=== PATIENT | female | born 1930 | race Caucasian/White ===

== ENCOUNTER 2017-05-30 19:31 | Inpatient (IN) | payer MEDICARE, OTHER ==
[~2017-05-30] VITALS: Ht 160 cm; Wt 71.2 kg
[2017-05-30] MEDS ORDERED: SOD CHLORIDE 0.9% 500 ML IV STA (19:54)
[2017-05-30] MEDS ORDERED: ONDANSETRON 4 MG INJ IV STA (19:54)
[2017-05-30] MEDS ORDERED: morphine 4 MG/ML VIAL IV STA (19:54)
--- NOTE | 2017-05-30 19:58 | ERA ---
ER Documentation Chief Complaint Date/Time DATE: 05/30/17 TIME: 19:57 Chief Complaint bib ra from home for n/v since morning, and hypertensionk, bs on field 179 HPI 86-year-old female, history of diabetes mellitus type 2, hypertension, dyslipidemia and coronary artery disease status post PCI, presents to the ED via rescue ambulance complaining of nausea with multiple episodes of nonbloody, nonbilious emesis since this morning. Over the last several hours developed moderate, generalized, crampy, nonradiating abdominal pain is localized to the epigastrium. Denies hematemesis, hematochezia or melanotic stools. No chest pain, palpitations or shortness of breath. No leg pain or swelling. Denies dysuria, polyuria, hematuria or flank pain. No ill contacts, recent travel or contaminated food exposure. No relieving or exacerbating factors. No fevers or chills. ROS All systems reviewed and are negative except as per history of present illness. Medications Home Meds Reported Medications Liraglutide (Victoza 3-Delgado) Unknown Strength Pen.injctr, 0 SQ DAILY, SYR 05/30/17 Aspirin* (Aspirin* EC) 81 Mg Tablet.dr, 81 MG PO DAILY, TAB 05/30/17 Metformin Hcl* (Metformin Hcl*) 1,000 Mg Tablet, 1000 MG PO WITH BREAKFAST DINNE , #60 TAB 05/30/17 Clopidogrel Bisulfate* (Clopidogrel Bisulfate*) 75 Mg Tablet, 75 MG PO DAILY, # 30 TAB 05/30/17 Tramadol Hcl* (Ultram*) 50 Mg Tablet, 50 MG PO Q6H Y for PAIN, TAB 05/30/17 Sumatriptan Succinate* (Sumatriptan Succinate*) 50 Mg Tablet, 50 MG PO NEEDED Y for PRN, TAB May repeat after 2 hours if needed; MAX 200 mg/24 hours 05/30/17 Carvedilol* (Carvedilol*) 12.5 Mg Tablet, 12.5 MG PO BID, #60 TAB 05/30/17 Amlodipine Besylate* (Amlodipine Besylate*) 10 Mg Tablet, 10 MG PO DAILY, #30 TAB 05/30/17 Ibuprofen* (Ibuprofen*) 600 Mg Tablet, 600 MG PO BID Y for PRN, TAB 05/30/17 Glipizide* (Glipizide*) 10 Mg Tablet, 10 MG PO AC BREAKFAST DINNER, TAB 05/30/17 Allergies Allergies: Coded Allergies: No Known Allergy (Unverified , 05/30/17) PMhx/Soc Reviewed in chart. As per HPI. Lives with family. History of Surgery: Yes (Appendectomy, PCI.) Anesthesia Reaction: No Hx Neurological Disorder: No Hx Respiratory Disorders: No Hx Cardiac Disorders: Yes (Hypertension, coronary artery disease) Hx Psychiatric Problems: No Hx Miscellaneous Medical Probl: Yes (Diabetes, dyslipidemia) Hx Alcohol Use: Yes (Social) Hx Substance Use: No Hx Tobacco Use: No FmHx Hypertension. Mother: of cancer. Physical Exam Vitals Time: 19:40. T:98.8 P:108 R:18 BP:232/114 Pox:99% Physical Exam Const: Alert, elderly, anxious, moderate to severe distress due to pain. Head: Atraumatic Eyes: Normal Conjunctiva. Extraocular movements are intact. Anicteric. ENT: Normal External Ears, Nose and Mouth. Pharynx is clear. Mucous membranes are moist. Neck: Full range of motion. Nontender. No JVD. Resp: Breath sounds are equal and clear to auscultation bilaterally Cardio: Regular rate and rhythm, no murmurs or gallops. Abd: Soft, obese. Normal bowel sounds. Not distended.. No calf swelling or tenderness. Moderate diffuse tenderness localized to the epigastrium. No rebound or guarding. No masses or abnormal pulsations. Skin: No petechiae or rashes Back: No midline or flank tenderness Ext: No cyanosis, or edema. Pulses 4+ in all extremities. Neur: Awake and alert. No focal deficit observed. Psych: Appears anxious but not depressed. Result Diagram: 06/07/1759 06/07/1759 Results 24 hrs Laboratory Tests Test 05/30/17 19:59 05/30/17 20:30 05/30/17 21:03 05/30/17 23:00 Bedside Glucose 227mg/dL White Blood Count 12.210^3/ul Red Blood Count 4.3710^6/ul Hemoglobin 12.4g/dl Hematocrit 37.7% Mean Corpuscular Volume 86.3fl Mean Corpuscular Hemoglobin 28.4pg Mean Corpuscular Hemoglobin Concent 32.9g/dl Red Cell Distribution Width 13.3% Platelet Count 93249^3/UL Mean Platelet Volume 9.5fl Neutrophils % 87.3% Lymphocytes % 10.1% Monocytes % 2.0% Eosinophils % 0.0% Basophils % 0.2% Nucleated Red Blood Cells % 0.0/100WBC Neutrophils # 10.710^3/ul Lymphocytes # 1.210^3/ul Monocytes # 0.310^3/ul Eosinophils # 0.010^3/ul Basophils # 0.010^3/ul Nucleated Red Blood Cells # 0.010^3/ul Sodium Level 141mmol/L Potassium Level 4.0mmol/L Chloride Level 104mmol/L Carbon Dioxide Level 19mmol/L Anion Gap 22 Blood Urea Nitrogen 20mg/dl Creatinine 0.98mg/dl Glucose Level 265mg/dl Calcium Level 9.6mg/dl Total Bilirubin 0.4mg/dl Direct Bilirubin 0.00mg/dl Indirect Bilirubin 0.4mg/dl Aspartate Amino Transf (AST/SGOT) 26IU/L Alanine Aminotransferase (ALT/SGPT) 36IU/L Alkaline Phosphatase 100IU/L Troponin I 0.642ng/ml 1.200ng/ml Total Protein 8.6g/dl Albumin 4.7g/dl Globulin 3.90g/dl Albumin/Globulin Ratio 1.20 Lipase 323U/L Urine Color STRAW Urine Clarity CLEAR Urine pH 8.0 Urine Specific Gould 1.007 Urine Ketones 1+mg/dL Urine Nitrite NEGATIVEmg/dL Urine Bilirubin NEGATIVEmg/dL Urine Urobilinogen NEGATIVEmg/dL Urine Leukocyte Esterase NEGATIVELeu/ul Urine Microscopic RBC 3/HPF Urine Microscopic WBC 4/HPF Urine Hemoglobin NEGATIVEmg/dL Urine Glucose 3+mg/dL Urine Total Protein 2+mg/dl Test 05/30/17 23:10 05/31/17 01:40 05/31/17 01:50 05/31/17 03:10 Lactic Acid Level 3.9mmol/L 2.6mmol/L White Blood Count 16.810^3/ul Red Blood Count 4.3210^6/ul Hemoglobin 12.2g/dl Hematocrit 37.4% Mean Corpuscular Volume 86.6fl Mean Corpuscular Hemoglobin 28.2pg Mean Corpuscular Hemoglobin Concent 32.6g/dl Red Cell Distribution Width 13.5% Platelet Count 21604^3/UL Mean Platelet Volume 9.6fl Neutrophils % 92.5% Lymphocytes % 4.7% Monocytes % 2.3% Eosinophils % 0.0% Basophils % 0.1% Nucleated Red Blood Cells % 0.0/100WBC Neutrophils # 15.510^3/ul Lymphocytes # 0.810^3/ul Monocytes # 0.410^3/ul Eosinophils # 0.010^3/ul Basophils # 0.010^3/ul Nucleated Red Blood Cells # 0.010^3/ul Prothrombin Time 13.3Sec Prothrombin Time Ratio 1.0 INR International Normalized Ratio 1.01 Activated Partial Thromboplast Time > 180.0Sec Current Medications Medications (Trade) Dose Ordered Sig/Elvira Route PRN Reason Start Time Stop Time Status Last Admin Dose Admin Sodium Chloride (NS) 500 ml @ 500 mls/hr Q1H STAT IV 05/30/17 19:54 05/30/17 20:53 DC 05/30/17 20:11 Morphine Sulfate (morphine) 4 mg ONCE STAT IV 05/30/17 19:54 05/30/17 19:56 DC 05/30/17 20:10 Ondansetron HCl 4 mg 4 mg ONCE STAT IV 05/30/17 19:54 05/30/17 19:56 DC 05/30/17 20:10 Nicardipine HCl (Cardene Iv) 200 ml @ 50 mls/hr TITRATE IV 05/30/17 21:00 05/31/17 09:18 DC 05/30/17 21:02 IV Flush 10 ml 10 ml STK-MED ONCE .ROUTE 05/30/17 21:10 05/30/17 21:11 DC 05/30/17 21:38 Sodium Chloride 100 ml @ ud STK-MED ONCE .ROUTE 05/30/17 21:10 05/30/17 21:11 DC 05/30/17 21:38 Iohexol (Omnipaque) 100 ml @ ud STK-MED ONCE .ROUTE 05/30/17 21:10 05/30/17 21:11 DC 05/30/17 21:38 Iohexol (Omnipaque 350mg/ ml) 50 ml STK-MED ONCE .ROUTE 05/30/17 21:10 05/30/17 21:11 DC 05/30/17 21:38 Morphine Sulfate (morphine) 4 mg ONCE ONCE IV 05/30/17 22:44 05/30/17 22:45 DC 05/30/17 21:25 Ondansetron HCl (Zofran Inj) 4 mg ONCE ONCE IV 05/30/17 22:44 05/30/17 22:45 DC 05/30/17 21:25 Lorazepam (Ativan) 0.5 mg ONCE ONCE PO 05/30/17 23:00 05/30/17 23:01 Cancel Famotidine (Pepcid Iv) 20 mg ONCE ONCE IV 05/30/17 23:30 05/30/17 23:31 DC 05/30/17 23:12 Lorazepam (Ativan) 0.5 mg ONCE ONCE IV 05/30/17 23:30 05/30/17 23:31 DC 05/30/17 23:12 Aspirin (Aspirin) 325 mg ONCE ONCE PO 05/30/17 23:48 05/30/17 23:49 DC 05/31/17 00:01 Nitroglycerin (Nitroglycerin 2% Oint) 1 inch ONCE ONCE TD 05/30/17 23:48 05/30/17 23:49 DC 05/31/17 00:01 Miscellaneous Information (* Miscellaneous Pharmacy Order) DC previous hepa... ONCE ONCE XX 05/31/17 01:30 05/31/17 01:31 DC Heparin Sodium (Porcine) 4000 unit 4,000 unit ONCE ONCE IV 05/31/17 01:30 05/31/17 01:31 DC 05/31/17 02:06 Heparin Sodium (Porcine) (Heparin 41809 Units/250 ml) 250 ml @ 10 mls/hr PER PROTOCOL IV 05/31/17 01:30 06/06/17 23:02 DC 06/06/17 04:33 Morphine Sulfate 2 mg 2 mg Q4H PRN IV MODERATE PAIN LEVEL 4-6 05/31/17 01:30 Sodium Chloride (NS) 1,000 ml @ 60 mls/hr [id number] IV 05/31/17 01:59 06/02/17 09:18 DC 06/01/17 16:07 IV Flush (NS 3 ml) 3 ml PER PROTOCOL IV 05/31/17 02:00 Acetaminophen (Tylenol Tab) 650 mg Q6H PRN PO PAIN LEVEL 1-3 OR FEVER 05/31/17 02:00 06/05/17 18:28 Ondansetron HCl (Zofran Inj) 4 mg Q4H PRN IV NAUSEA AND/OR VOMITING 05/31/17 02:30 05/31/17 02:30 Pantoprazole (Protonix Iv) 40 mg ONCE ONCE IV 05/31/17 02:30 05/31/17 02:32 DC 05/31/17 02:35 Ondansetron HCl (Zofran Inj) 4 mg STK-MED ONCE .ROUTE 05/30/17 20:05 05/31/17 21:14 DC Morphine Sulfate (morphine) 4 mg STK-MED ONCE .ROUTE 05/30/17 20:06 05/31/17 21:14 DC EKG: TIME: 19: 53. Sinus rhythm. Ventricular rate 100. Q waves in V1 through V3. No acute ST segment elevation or depression. No ectopy. EP Interpretation : Abnormal EKG. IMAGING: PROCEDURE: Portable chest x-ray. CLINICAL INDICATION: Abdominal pain. TECHNIQUE: Portable AP view of the chest. COMPARISON: None. FINDINGS: No pulmonary edema or conolidation is identified. The cardiac silhouette is magnified. There are aortic calcifications. No pleural effusion is seen. There is no pneumothorax. There is no pneumoperitoneum. IMPRESSION: 1. No evidence of acute cardiopulmonary disease. 2. Aortic atherosclerosis. 3. No pneumoperitoneum. RPTAT: HTAR .Leonidas Alanis MD, Date Time Electronically viewed and signed by .Leonidas Alanis MD, on 05/30/2017 21:23 .R/ Ordering MD: JAMES NOGUERA MD Location: E/R Room/Bed: PROCEDURE: CT abdomen and pelvis with intravenous contrast. CLINICAL INDICATION: Pain. TECHNIQUE: CT of the abdomen/pelvis was performed utilizing axial images with reconstructions in sagittal and coronal planes after uneventful administration of 125 cc Omnipaque 350. The administered radiation dose is CTDI 12.3 mGy, DLP 711 mGy-cm. One or more of the following dose reduction techniques were used: automated exposure control, adjustment of the mA and/or kV according to patient size and/or use of iterative reconstruction technique. COMPARISON: No pertinent prior examinations were submitted for comparison. FINDINGS: Visualized Chest: Please refer to the separately dictated examination of the chest. Abdomen: The spleen, pancreas, gallbladder,and adrenal glands are unremarkable. The liver is diffusely decreased in attenuation, compatible with hepatic steatosis. The kidneys are without hydronephrosis. No definite urinary calculi are seen. Small hypoattenuating left renal lesions are noted, likely cysts. There is no evidence of bowel obstruction. The appendix is not seen. There is no evidence of appendicitis. No intra-abdominal free air is seen. There is no evidence of intra-abdominal adenopathy or free fluid. Vascular calcifications are noted within the aorta and its branches. There is likely some moderate to marked narrowing within the visualized superficial femoral arteries. Pelvis: There is no evidence of pelvic adenopathy. The uterus and ovaries are without enlargement. The urinary bladder is unremarkable. There is no pelvic free fluid. Osseous structures: Unremarkable. IMPRESSION: No acute findings. Hepatic steatosis. Atherosclerosis with likely moderate to marked narrowing within the visualized superficial femoral arteries. RPTAT: HIKT .Jayjay Haley MD, MD Date Time Electronically viewed and signed by .Jayjay Haley MD, MD on 05/30/2017 22:24 .T/ Ordering MD: JAMES NOGUERA MD Location: E/R Room/Bed: PROCEDURE: CT angiogram chest. CLINICAL INDICATION: Shortness of breath. TECHNIQUE: CT angiogram of the chest was performed utilizing axial images with reconstructions in sagittal and coronal planes following the intravenous administration of 100 cc Omnipaque 350 contrast. The administered radiation dose is CTDI 12.3 mGy, DLP 543 mGy-cm. One or more of the following dose reduction techniques were used: automated exposure control, adjustment of the mA and/or kV according to patient size and/or use of iterative reconstruction technique. 3D and / or MIPS reformats were performed. COMPARISON: No pertinent prior examinations are submitted for comparison. FINDINGS: Pulmonary angiogram: The pulmonary arteries are adequately opacified to the level of the segmental pulmonary artery branches. There is minimal respiratory motion artifact. There is no evidence of pulmonary embolus. Aortogram: There is no evidence of aortic dissection or aneurysm. Major branches of the aorta are patent. Some atherosclerotic calcifications are noted in the aorta and its branches. Chest: There is some mild atelectasis at the lung bases. No pleural effusions are seen. The tracheobronchial tree is unremarkable. There is moderate cardiomegaly. Coronary artery calcifications are noted. No pericardial effusion is seen. There is no mediastinal or hilar adenopathy. Two nodules are noted within the right thyroid lobe. The larger nodule measures up to 15 mm. Visualized Upper abdomen: Please refer to the separately dictated examination of the abdomen and pelvis. Osseous structures: Unremarkable. IMPRESSION: No evidence of pulmonary embolus. No evidence of aortic dissection or aneurysm. Thyroid nodules measuring up to 15 mm. This can be further evaluated with ultrasound on a non emergent basis. RPTAT: HIKT .Jayjay Haley MD, MD Date Time Electronically viewed and signed by .Jayjay Haley MD, MD on 05/30/2017 22:28 .T/ PROCEDURE: CT angiogram of the abdomen and pelvis with 3-D reconstructions CLINICAL INDICATION: Mesenteric ischemia TECHNIQUE: CT angiogram of the abdomen and pelvis with lower extremity runoff was performed on a multislice CT scanner . The patient was scanned after administration of intravenous contrast (110 cc of Visipaque 320). Sagittal and coronal reformatted images were obtained from the axial source images. 3D MIP reformatted images were also created from the axial source images. DLP 1064.20 mGycm CTDI vol 41.08, 17.07 mGy One or more of the following dose reduction techniques were used: - Automated exposure control. - Adjustment of the mA and/or kV according to patient size. - Use of iterative reconstruction technique. COMPARISON: CT abdomen/pelvis from 05/30/2017 FINDINGS: ANGIOGRAM: There is no acute dissection or aneurysm of the abdominal aorta. There is severe narrowing at the origin of the celiac with only a faint string sign seen on sagittal image 77. The branches of the celiac axis are opacified, likely at least in part due to collaterals. There is moderate short segment narrowing of the proximal SMA (series 3, image 130). The main renal arteries are widely patent bilaterally. There is an accessory right renal artery which is widely patent. There is an accessory left renal artery which is widely patent. There is at least moderate narrowing at the origin of the REVA with a second focus of at least moderate narrowing proximally 85 sagittal image 79. The infrarenal aorta is diminutive in caliber, measuring up to 1.1 cm in diameter. There are non-flow limiting near - circumferential atherosclerotic calcifications of the primarily infrarenal aorta. There is mild narrowing of the mid to distal right common iliac artery. The left common iliac artery is widely patent. Bilateral internal and external iliac arteries are widely patent. The right common femoral and profunda arteries are widely patent. There is moderate short segment narrowing of the visualized proximal right superficial femoral artery on series 3, image 407. The left common femoral and profunda arteries are widely patent. There is short segment mild narrowing of the visualized proximal left superficial femoral artery on series 3, image 408. ANCILLARY: There is cholelithiasis. There is vicarious excretion of contrast into the gallbladder. There is a 2.3 cm simple left renal cyst. There is no evidence of pneumatosis intestinalis or portal venous gas. 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 There is a focus of short segment moderate narrowing in the proximal SMA. No evidence of pneumatosis intestinalis or portal venous gas to suggest mesenteric infarction. Cholelithiasis. RPTAT: EE Physician Carol Date Time Electronically viewed and signed by Physician Carol on 05/31/2017 11:27 RA/ Procedures/MDM DOCUMENTS REVIEWED: ED nurse, no prior records available MEDICAL DECISION MAKING/ED COURSE: 86-year-old female, history of diabetes mellitus type 2, hypertension, dyslipidemia and coronary artery disease status post PCI, presents to the ED via rescue ambulance for evaluation of abdominal pain, nausea and vomiting. Patient experienced minimal relief from morphine and Zofran. CT of the abdomen and pelvis was performed to rule out acute intra- abdominal pathology including not limited to diverticulitis, perforated viscus, bowel obstruction, obstructive uropathy, abdominal aortic aneurysm and mass. Was unremarkable. Despite adequate analgesics patient with ongoing severe hypertension requiring intravenous Cardene with good blood pressure control but subsequent tachycardia in the Cardene drip was discontinued. Patient then began to experience severe sharp and pressure-like chest pain which radiated straight through to the back. Repeat EKG revealed no ST segment elevation. Aspirin and nitroglycerin was given. CT angiogram of the chest was negative for pulmonary embolism and aortic dissection. Heparin drip will be started. Ongoing moderate anxiety improved with intravenous Lorazepam. Elevated troponin consistent with NSTEMI demand ischemia due to hypertensive emergency and hyperdynamic state is also considered. Patient continued to complain of generalized abdominal pain which seemed out of proportion to physical findings. Elevated lactate concerning for mesenteric ischemia. CT angiogram of the abdomen revealed severe narrowing and possible occlusion of the celiac origin as well as multifocal severe narrowing of the inferior mesenteric artery as well as narrowing of the proximal superior mesenteric artery however there was no evidence of pneumatosis, portal venous gas or other findings to suggest acute mesenteric infarction. Cholelithiasis is incidentally identified which may indeed be the etiology of her abdominal pain. Liver function tests are normal, there is no hyperbilirubinemia or other findings to suggest acute cholecystitis or cholangitis. Borderline elevated lipase not consistent with pancreatitis. Admit to telemetry for cardiology and GI consultations, further evaluation and management. Critical Care Time: 45 minutes Treatments/Evaluations: Close monitoring and treatment of unstable vital signs, cardiorespiratory, and neurologic status, while maintaining tight balance of fluid, respiratory, and cardiac interventions. This time includes discussing the case with the patient and the patient's family. This time does not include all procedures stated elsewhere in this record. This time also includes reviewing old records, labs and radiological studies. This time includes examining and re-examining the patient. Additionally, this time also includes arranging care with admitting and consulting physicians. Counseled patient and family regarding diagnosis, diagnostic results and plan for admission. CALLS/CONSULTS: Time 123:30, Dr. Brennan, Recommends admission to telemetry and CT angiography of the abdomen/pelvis to evaluate for mesenteric ischemia. PATIENT CARE TRANSITIONED: Time: 01:00, Dr. Brennan. Departure Diagnosis: Primary Impression: NSTEMI (non-ST elevated myocardial infarction) Additional Impressions: Hypertensive emergency Acute generalized abdominal pain Cholelithiasis Qualified Code: K80.20 - Calculus of gallbladder without cholecystitis without obstruction Nausea and vomiting Qualified Code: R11.2 - Nausea and vomiting, intractability of vomiting not specified, unspecified vomiting type History of coronary artery disease History of heart artery stent Diabetes mellitus type 2 in obese Hyperlipidemia Qualified Code: E78.5 - Hyperlipidemia, unspecified hyperlipidemia type Condition: Serious JAMES NOGUERA MD May 30, 2017 19:58
[2017-05-30] MEDS ORDERED: ONDANSETRON 4 MG INJ ONE (20:05)
[2017-05-30] MEDS ORDERED: morphine 4 MG/ML VIAL ONE (20:06)
[2017-05-30 20:43] LABS: BASOPHILS % 0.2 % (0.0-2.0); HEMATOCRIT 37.7 % (37.0-47.0); HEMOGLOBIN 12.4 g/dl (12.0-16.0); LYMPHOCYTES # 1.2 10^3/ul (0.8-2.9); LYMPHOCYTES % 10.1 % (15.0-51.0); MEAN CORPUSCULAR HEMOGLOBIN 28.4 pg (29.0-33.0); MEAN CORPUSCULAR HGB CONC 32.9 g/dl (32.0-37.0); MEAN CORPUSCULAR VOLUME 86.3 fl (82.0-101.0); MEAN PLATELET VOLUME 9.5 fl (7.4-10.4); MONOCYTE # 0.3 10^3/ul (0.3-0.9); NEUTROPHIL # 10.7 10^3/ul (1.6-7.5); NEUTROPHILS % 87.3 % (39.0-77.0); PLATELET COUNT 257 10^3/UL (140-415); RED BLOOD COUNT 4.37 10^6/ul (4.20-5.40); RED CELL DISTRIBUTION WIDTH 13.3 % (11.5-14.5); WHITE BLOOD COUNT 12.2 10^3/ul (4.8-10.8)
[2017-05-30] MEDS ORDERED: niCARdipine-NS 0.1MG/ML DRIP 200 ML IV SCH (21:00)
[2017-05-30 21:02] LABS: ALBUMIN 4.7 g/dl (3.3-4.9); ALBUMIN/GLOBULIN RATIO 1.2; BILIRUBIN,INDIRECT 0.4 mg/dl (0-1.1); BILIRUBIN,TOTAL 0.4 mg/dl (0.2-1.3); CALCIUM 9.6 mg/dl (8.4-10.2); CREATININE 0.98 mg/dl (0.44-1.00); TOTAL PROTEIN 8.6 g/dl (6.1-8.1)
[2017-05-30] MEDS ORDERED: SOD CHLORIDE 0.9% 100 ML ONE (21:10)
[2017-05-30] MEDS ORDERED: IOHEXOL 100 ML ONE (21:10)
[2017-05-30] MEDS ORDERED: IOHEXOL 350MG/ML 50 ML BTL ONE (21:10)
--- NOTE | 2017-05-30 21:23 | RADRPT ---
PROCEDURE: Portable chest x-ray. CLINICAL INDICATION: Abdominal pain. TECHNIQUE: Portable AP view of the chest. COMPARISON: None. FINDINGS: No pulmonary edema or conolidation is identified. The cardiac silhouette is magnified. There are ao rtic calcifications. No pleural effusion is seen. There is no pneumothorax. There is no pneumoper itoneum. IMPRESSION: 1. No evidence of acute cardiopulmonary disease. 2. Aortic atherosclerosis. 3. No pneumoperitoneum. RPTAT: HTAR .Leonidas Alanis MD, Date Time Electronically viewed and signed by .Leonidas Alanis MD, on 05/30/2017 21:23 .R/
[2017-05-30 21:34] LABS: ADD UMIC YES; UR ASCORBIC ACID NEGATIVE (NEGATIVE); UR BILIRUBIN (Dip) NEGATIVE (NEGATIVE); UR BLOOD (Dip) NEGATIVE (NEGATIVE); UR CLARITY CLEAR (CLEAR); UR COLOR STRAW (YELLOW); UR GLUCOSE (Dip) 3+ mg/dL (NEGATIVE); UR KETONES (Dip) 1+ mg/dL (NEGATIVE); UR LEUKOCYTE ESTERASE (Dip) NEGATIVE Leu/ul (NEGATIVE); UR NITRITE (Dip) NEGATIVE (NEGATIVE); UR RBC 3 /HPF (0-5); UR SPECIFIC GRAVITY (Dip) 1.007 (1.003-1.030); UR TOTAL PROTEIN (Dip) 2+ mg/dl (NEGATIVE); UR UROBILINOGEN (Dip) NEGATIVE (NEGATIVE)
[2017-05-30] MEDS ORDERED: GLIP-95 PO (21:58)
[2017-05-30] MEDS ORDERED: IBUP-1542 PO (21:59)
[2017-05-30] MEDS ORDERED: AMLO-147 PO (22:03)
[2017-05-30] MEDS ORDERED: CARV12.579 PO (22:04)
[2017-05-30] MEDS ORDERED: SUMA50TA3 PO (22:05)
[2017-05-30] MEDS ORDERED: TRAM-40 PO (22:05)
[2017-05-30] MEDS ORDERED: METF1000 PO (22:06)
[2017-05-30] MEDS ORDERED: CLOP75TA4 PO (22:06)
[2017-05-30] MEDS ORDERED: ASPI-664 PO (22:07)
[2017-05-30] MEDS ORDERED: LIRA0.6P2 SQ (22:07)
--- NOTE | 2017-05-30 22:24 | RADRPT ---
PROCEDURE: CT abdomen and pelvis with intravenous contrast. CLINICAL INDICATION: Pain. TECHNIQUE: CT of the abdomen/pelvis was performed utilizing axial images with reconstructions in s agittal and coronal planes after uneventful administration of 125 cc Omnipaque 350. The administered radiation dose is CTDI 12.3 mGy, DLP 711 mGy-cm. One or more of the following dose reduction techni ques were used: automated exposure control, adjustment of the mA and/or kV according to patient size and/or use of iterative reconstruction technique. COMPARISON: No pertinent prior examinations were submitted for comparison. FINDINGS: Visualized Chest: Please refer to the separately dictated examination of the chest. Abdomen: The spleen, pancreas, gallbladder,and adrenal glands are unremarkable. The liver is diffusely dec reased in attenuation, compatible with hepatic steatosis. The kidneys are without hydronephrosis. No definite urinary calculi are seen. Small hypoattenuating left renal lesions are noted, likely cysts. There is no evidence of bowel obstruction. The appendix is not seen. There is no evidence of append icitis. No intra-abdominal free air is seen. There is no evidence of intra-abdominal adenopathy or free fluid. Vascular calcifications are noted within the aorta and its branches. There is likely some moderate to marked narrowing within the vis ualized superficial femoral arteries. Pelvis: There is no evidence of pelvic adenopathy. The uterus and ovaries are without enlargement. The uri nary bladder is unremarkable. There is no pelvic free fluid. Osseous structures: Unremarkable. IMPRESSION: No acute findings. Hepatic steatosis. Atherosclerosis with likely moderate to marked narrowing within the visualized superficial femoral a rteries. RPTAT: HIKT .Jayjay Haley MD, Date Time Electronically viewed and signed by .Jayjay Haley MD, on 05/30/2017 22:24 .T/
--- NOTE | 2017-05-30 22:28 | RADRPT ---
PROCEDURE: CT angiogram chest. CLINICAL INDICATION: Shortness of breath. TECHNIQUE: CT angiogram of the chest was performed utilizing axial images with reconstructions in sagittal and coronal planes following the intravenous administration of 100 cc Omnipaque 350 contras t. The administered radiation dose is CTDI 12.3 mGy, DLP 543 mGy-cm. One or more of the following do se reduction techniques were used: automated exposure control, adjustment of the mA and/or kV accord ing to patient size and/or use of iterative reconstruction technique. 3D and / or MIPS reformats we re performed. COMPARISON: No pertinent prior examinations are submitted for comparison. FINDINGS: Pulmonary angiogram: The pulmonary arteries are adequately opacified to the level of the segmental pulmonary artery branches. There is minimal respiratory motion artifact. There is no evidence of p ulmonary embolus. Aortogram: There is no evidence of aortic dissection or aneurysm. Major branches of the aorta are patent. Some atherosclerotic calcifications are noted in the aorta and its branches. Chest: There is some mild atelectasis at the lung bases. No pleural effusions are seen. The tracheobronchia l tree is unremarkable. There is moderate cardiomegaly. Coronary artery calcifications are noted. No pericardial effusion is seen. There is no mediastinal or hilar adenopathy. Two nodules are noted within the right thyroid lobe. The larger nodule measures up to 15 mm. Visualized Upper abdomen: Please refer to the separately dictated examination of the abdomen and pel vis. Osseous structures: Unremarkable. IMPRESSION: No evidence of pulmonary embolus. No evidence of aortic dissection or aneurysm. Thyroid nodules measuring up to 15 mm. This can be further evaluated with ultrasound on a non emerge nt basis. RPTAT: HIKT .Jayjay Haley MD, Date Time Electronically viewed and signed by .Jayjay Haley MD, on 05/30/2017 22:28 .T/
[2017-05-30] MEDS ORDERED: ONDANSETRON 4 MG INJ IV ONE (22:44)
[2017-05-30] MEDS ORDERED: morphine 4 MG/ML VIAL IV ONE (22:44)
[2017-05-30] MEDS ORDERED: LORAZEPAM 0.5 MG TAB PO ONE (23:00)
[2017-05-30] MEDS ORDERED: LORAZEPAM 2 MG INJ IV ONE (23:30)
[2017-05-30] MEDS ORDERED: FAMOTIDINE 20 MG INJ IV ONE (23:30)
[2017-05-30] MEDS ORDERED: ASPIRIN 325 MG TAB PO ONE (23:48)
[2017-05-30] MEDS ORDERED: NITROGLYCERIN 2% 1 GM OINT PKT TD ONE (23:48)
[2017-05-31] VITALS (11 sets, daily range): BP systolic 91–116; BP diastolic 43–58; PULSE 79–100; RESP 16–19; TEMP 97.9; Ht 160 cm; Wt 71.2 kg
[2017-05-31] MEDS ORDERED: morphine 2 MG INJ IV PRN (01:30)
[2017-05-31] MEDS ORDERED: HEPARIN 1000 UNITS/ML 10 ML INJ IV ONE (01:30)
[2017-05-31] MEDS ORDERED: NACL 0.9% 3 ML SYG IV SCH (02:00)
[2017-05-31 02:04] LABS: INR 1.01; PROTIME 13.3 Sec (12.2-14.2)
[2017-05-31] MEDS: HEPARIN 25000 UNITS/250 ML 250 ML IV SCH ×4 (02:07→23:17)
[2017-05-31 02:10] LABS: BASOPHILS % 0.1 % (0.0-2.0); HEMATOCRIT 37.4 % (37.0-47.0); HEMOGLOBIN 12.2 g/dl (12.0-16.0); LYMPHOCYTES # 0.8 10^3/ul (0.8-2.9); LYMPHOCYTES % 4.7 % (15.0-51.0); MEAN CORPUSCULAR HEMOGLOBIN 28.2 pg (29.0-33.0); MEAN CORPUSCULAR HGB CONC 32.6 g/dl (32.0-37.0); MEAN CORPUSCULAR VOLUME 86.6 fl (82.0-101.0); MEAN PLATELET VOLUME 9.6 fl (7.4-10.4); MONOCYTE # 0.4 10^3/ul (0.3-0.9); MONOCYTES % 2.3 % (0.0-11.0); NEUTROPHIL # 15.5 10^3/ul (1.6-7.5); NEUTROPHILS % 92.5 % (39.0-77.0); PLATELET COUNT 275 10^3/UL (140-415); RED BLOOD COUNT 4.32 10^6/ul (4.20-5.40); RED CELL DISTRIBUTION WIDTH 13.5 % (11.5-14.5); WHITE BLOOD COUNT 16.8 10^3/ul (4.8-10.8)
[2017-05-31] MEDS ORDERED: ONDANSETRON 4 MG INJ IV PRN (02:30)
[2017-05-31] MEDS ORDERED: PANTOPRAZOLE 40 MG INJ IV ONE (02:30)
[2017-05-31] MEDS: SOD CHLORIDE 0.9% 1,000 ML IV SCH ×3 (02:30→23:19)
[2017-05-31 04:27] LABS: PARTIAL THROMBOPLASTIN TIME > 180.0 Sec (25.0-35.0)
[2017-05-31] MEDS: PANTOPRAZOLE 40 MG INJ IV SCH (06:00)
[2017-05-31] MEDS ORDERED: GLUCOSE GEL 15 GRAM TUBE BUCCAL PRN (06:15)
[2017-05-31] MEDS ORDERED: GLUCAGON 1 MG INJ IM PRN (06:15)
[2017-05-31] MEDS ORDERED: GLUCOSE GEL 15 GRAM TUBE PO PRN ×2 (06:15)
[2017-05-31] MEDS ORDERED: DEXTROSE 50% 50 ML SYRINGE IV PRN ×2 (06:15)
--- NOTE | 2017-05-31 07:32 | HP ---
Date/Time of Note Date/Time of Note DATE: 05/31/17 TIME: 07:30 Assessment/Plan VTE Prophylaxis VTE Prophylaxis Intervention: heparin Lines/Catheters IV Catheter Type (from [facility]): Peripheral IV Assessment/Plan Chief Complaint/Hosp Course This is a 86 year female being admitted to the telemetry unit floor for #1 NSTEMI: Initial troponin 0.56 with the following one being 1.2. Will continue to trend troponins. Will resume patient's home medications. Will start patient on heparin drip. Will order an echocardiogram in the a.m. Will consult cardiology. Will provide nitro/morphine as needed for pain #2 lactic acidosis: Patient initial lactate was 3.6 with a subsequent one being 2.3. There was a concern for possible mesenteric ischemia as patient did present with abdominal pain however the pain resolved on its own. CTA of the abdomen was considered however was unable to be performed secondary to patient already received a contrast load from the initial CTA of the chest. Since the patient's abdominal pain had resolved and the lactate was continuing to decrease the decision was made to hold off on the CT angiogram of the abdomen. Patient was already on a heparin drip at this point as well. If clinical symptoms worsen we will consider emergent CT of the abdomen. Will hold patient' s metformin which also could be a cause of her lactic acidosis and also worsen it if we continue it. #3 Diabetes mellitus: Check hemoglobin A1c,, insulin sliding scale we will hold home metformin secondary to lactic acidosis. Will hold patient's home metformin which also could be because of the patient's lactic acidosis along with her vomiting patient's blood sugars on presentation greater than 250 and patient did have a gap of approximately 18. There was concern for possible DKA , ABG was ordered. At the current time patient was put on insulin sliding scale normal saline. Start patient on insulin drip as indicated. She was not displaying any symptoms of nausea vomiting during the hospital stay. Will also order urinalysis to assess for any ketones. #4 hypertension: Continue patient's home medications #5 coronary artery disease: Resume Plavix/aspirin/beta javi. And treat for # 1 #6 DVT and GI problems: Heparin, Protonix further treatment strategy will be implemented with clinical course Problems: HPI/ROS Admit Date/Time Admit Date/Time May 31, 2017 at 05:25 Hx of Present Illness Chief complaint: Nausea vomiting starting at 2 PM yesterday, shortness of breath , epigastric pain This is a 86-year-old female who presents to the ED nausea and vomiting since 2 PM yesterday and shortness of breath. Patient reports that she started patient reports that she started having nausea vomiting and experienced some shortness of breath. She also had epigastric pain. As it did not get better she came to the ER. He denies any chest pain. Upon initial examination of the abdomen by the ED physician she had diffuse abdominal pain however upon my examination the patient had epigastric pain the rest of her abdomen was benign to palpation. She denied any bloody vomiting or bloody stool. Allergies: NKDA Medications: See Oct Const: As per HPI Eyes : No pain discharge or redness or change in visual acuity ENT: No pain, sore throat, congestion, congestion, dysphagia or discharge Respiratory: No shortness of breath, cough, sputum, wheezing, or pleuritic pain Cardiovascular: As per HPI GI : As per HPI Genitourinary: No dysuria, hematuria, flank pain , discharge or CVA tenderness Musculoskeletal: No joint pain, back pain, neck pain, restricted range of motion in neck or joints Skin: No rash, bruising or hives Neuro: No headache, dizziness, syncope, seizure, focal weakness Endocrine: No polyuria, polydipsia, temperature intolerance Psych: No hallucination, depression, anxiety or suicidal ideation PMH/Family/Social Past Medical History Coronary artery disease, hyperlipidemia, diabetes mellitus, hypertension Past Surgical History Cardiac stent 3, appendectomy Family History Significant Family History: other (Gallbladder cancer: mom) Social History Alcohol Use: occasionally Smoking Status: Never smoker Drug Use: none Exam/Review of Systems Vital Signs Vitals Vital Signs Date Time Temp Pulse Resp B/P Pulse Ox O2 Delivery O2 Flow Rate FiO2 05/31/17 06:45 Nasal Cannula 2.0 05/31/17 06:37 98.4 97 18 116/57 99 Exam Exam General: This is a pleasant female lying in bed in no acute distress on my examination HEENT: Atraumatic, normocephalic. The pupils are equal, round and reactive. Extraocular motor are intact Neck: Supple with full range of motion. No rigidity or meningismus Chest: Nontender Lungs: Clear to auscultation bilaterally no crackles rales or wheezing Heart: Normal S1-S2, Regular rhythm and rate. No murmur, S3, or S4 Abdomen: Soft, tenderness to palpation at the epigastric region, the rest of the abdomen is benign on palpation and deep palpation. Normal bowel sounds. Extremities: Normal to inspection, no edema no cyanosis Neurologic: Normal mental status, speech normal, cranial nerves II through XII are intact, motor and sensory are intact, no focal weakness Additional Comments PROCEDURE: CT angiogram chest. CLINICAL INDICATION: Shortness of breath. TECHNIQUE: CT angiogram of the chest was performed utilizing axial images with reconstructions in sagittal and coronal planes following the intravenous administration of 100 cc Omnipaque 350 contrast. The administered radiation dose is CTDI 12.3 mGy, DLP 543 mGy-cm. One or more of the following dose reduction techniques were used: automated exposure control, adjustment of the mA and/or kV according to patient size and/or use of iterative reconstruction technique. 3D and / or MIPS reformats were performed. COMPARISON: No pertinent prior examinations are submitted for comparison. FINDINGS: Pulmonary angiogram: The pulmonary arteries are adequately opacified to the level of the segmental pulmonary artery branches. There is minimal respiratory motion artifact. There is no evidence of pulmonary embolus. Aortogram: There is no evidence of aortic dissection or aneurysm. Major branches of the aorta are patent. Some atherosclerotic calcifications are noted in the aorta and its branches. Chest: There is some mild atelectasis at the lung bases. No pleural effusions are seen. The tracheobronchial tree is unremarkable. There is moderate cardiomegaly. Coronary artery calcifications are noted. No pericardial effusion is seen. There is no mediastinal or hilar adenopathy. Two nodules are noted within the right thyroid lobe. The larger nodule measures up to 15 mm. Visualized Upper abdomen: Please refer to the separately dictated examination of the abdomen and pelvis. Osseous structures: Unremarkable. IMPRESSION: No evidence of pulmonary embolus. No evidence of aortic dissection or aneurysm. Thyroid nodules measuring up to 15 mm. This can be further evaluated with ultrasound on a non emergent basis. RPTAT: HIKT .Jayjay Haley MD, MD Date Time Electronically viewed and signed by .Jayjay Haley MDMD on 05/30/2017 22:28 .T/ CC: JAMES NOGUERA MD PROCEDURE: CT abdomen and pelvis with intravenous contrast. CLINICAL INDICATION: Pain. TECHNIQUE: CT of the abdomen/pelvis was performed utilizing axial images with reconstructions in sagittal and coronal planes after uneventful administration of 125 cc Omnipaque 350. The administered radiation dose is CTDI 12.3 mGy, DLP 711 mGy-cm. One or more of the following dose reduction techniques were used: automated exposure control, adjustment of the mA and/or kV according to patient size and/or use of iterative reconstruction technique. COMPARISON: No pertinent prior examinations were submitted for comparison. FINDINGS: Visualized Chest: Please refer to the separately dictated examination of the chest. Abdomen: The spleen, pancreas, gallbladder,and adrenal glands are unremarkable. The liver is diffusely decreased in attenuation, compatible with hepatic steatosis. The kidneys are without hydronephrosis. No definite urinary calculi are seen. Small hypoattenuating left renal lesions are noted, likely cysts. There is no evidence of bowel obstruction. The appendix is not seen. There is no evidence of appendicitis. No intra-abdominal free air is seen. There is no evidence of intra-abdominal adenopathy or free fluid. Vascular calcifications are noted within the aorta and its branches. There is likely some moderate to marked narrowing within the visualized superficial femoral arteries. Pelvis: There is no evidence of pelvic adenopathy. The uterus and ovaries are without enlargement. The urinary bladder is unremarkable. There is no pelvic free fluid. Osseous structures: Unremarkable. IMPRESSION: No acute findings. Hepatic steatosis. Atherosclerosis with likely moderate to marked narrowing within the visualized superficial femoral arteries. RPTAT: HIKT .Jayjay Haley MD, MD Date Time Electronically viewed and signed by .Jayjay Haley MD, on 05/30/2017 22:24 .T/ CC: JAMES NOGUERA MD PROCEDURE: Portable chest x-ray. CLINICAL INDICATION: Abdominal pain. TECHNIQUE: Portable AP view of the chest. COMPARISON: None. FINDINGS: No pulmonary edema or conolidation is identified. The cardiac silhouette is magnified. There are aortic calcifications. No pleural effusion is seen. There is no pneumothorax. There is no pneumoperitoneum. IMPRESSION: 1. No evidence of acute cardiopulmonary disease. 2. Aortic atherosclerosis. 3. No pneumoperitoneum. RPTAT: HTAR .Leonidas Alanis MD, MD Date Time Electronically viewed and signed by .Leonidas Alanis MD, MD on 05/30/2017 21:23 .R/ CC: JAMES NOGUERA MD Sinus rhythm. Ventricular rate 100. Q waves in V1 through V3. No acute ST segment elevation or depression. No ectopy. EP Interpretation: Abnormal EKG. as per ed physician documentation Labs Result Diagram: 05/31/17 0150 05/30/172029 Medications Medications Current Medications Nicardipine HCl (Cardene Iv) 200 ml @ 50 mls/hr TITRATE IV Last administered on 05/30/17 21:02; Admin Dose 50 MLS/HR; Start 05/30/17 at 21:00 Morphine Sulfate 2 mg 2 mg Q4H PRN IV MODERATE PAIN LEVEL 4-6; Start 05/31/17 at 01:30 Sodium Chloride (NS) 1,000 ml @ 60 mls/hr [id number] IV Last administered on 05/31 02:30; Admin Dose 60 MLS/HR; Start 05/31/17 at 01:59 Acetaminophen (Tylenol Tab) 650 mg Q6H PRN PO PAIN LEVEL 1-3 OR FEVER; Start 05/31/17 at 02:00 Pantoprazole (Protonix Iv) 40 mg DAILY@06 IV ; Start 05/31/17 at 06:00 Ondansetron HCl (Zofran Inj) 4 mg Q4H PRN IV NAUSEA AND/OR VOMITING Last administered on 05/31/17 02:30; Admin Dose 4 MG; Start 05/31/17 at 02:30 Insulin Aspart (Novolog Insulin Pen) NOVOLOG *MILD* ALGORI... Q4 SC ; Start 05/31/17 at 09:00 Miscellaneous Information 1 ea NOTE XX ; Start 05/31/17 at 06:15 Glucose (Glutose) 15 gm Q15M PRN PO DECREASED GLUCOSE; Start 05/31/17 at 06:15 Glucose (Glutose) 22.5 gm Q15M PRN PO DECREASED GLUCOSE; Start 05/31/17 at 06: 15 Dextrose (D50w Syringe) 25 ml Q15M PRN IV DECREASED GLUCOSE; Start 05/31/17 at 06:15 Dextrose (D50w Syringe) 50 ml Q15M PRN IV DECREASED GLUCOSE; Start 05/31/17 at 06:15 Glucagon (Glucagen) 1 mg Q15M PRN IM DECREASED GLUCOSE; Start 05/31/17 at 06:15 Glucose (Glutose) 15 gm Q15M PRN BUCCAL DECREASED GLUCOSE; Start 05/31/17 at 06 :15 COREY KHAN May 31, 2017 07:32
[2017-05-31 08:11] LABS: AADO2 Arterial 38.3 mmHg (7.0-24.0); Allen Test ACCEPTAB; Arterial Base Excess 0.6 mmol/L (-3.0-3); Arterial COHb 0.3 % (0.0-3.0); Arterial Fraction of Oxyhgb 96.8 % (93.0-99.0); Arterial HCO3 25.6 mmol/L (22.0-26.0); Arterial MetHb 0.2 % (0.0-1.5); Arterial Total Hemglobin 11.8 g/dl (12.0-18.0); MODE NASAL CANNULA
[2017-05-31 09:11] LABS: ALBUMIN 3.9 g/dl (3.3-4.9); ALBUMIN/GLOBULIN RATIO 1.21; BILIRUBIN,INDIRECT 0.3 mg/dl (0-1.1); BILIRUBIN,TOTAL 0.3 mg/dl (0.2-1.3); CALCIUM 8.7 mg/dl (8.4-10.2); CREATININE 1.24 mg/dl (0.44-1.00); POTASSIUM 4.7 mmol/L (3.5-5.1); TOTAL PROTEIN 7.1 g/dl (6.1-8.1)
[2017-05-31] MEDS: CLOPIDOGREL 75 MG TAB PO SCH (09:49)
[2017-05-31] MEDS: INSULIN ASPART [NOVOLOG] 3 ML PEN SC SCH ×4 (09:49→21:34)
[2017-05-31] MEDS: AMLODIPINE 10 MG TAB PO SCH (09:50)
[2017-05-31] MEDS: ASPIRIN (EC) 81 MG TAB PO SCH (09:50)
[2017-05-31] MEDS ORDERED: SOD CHLORIDE 0.9% 100 ML ONE (10:39)
[2017-05-31] MEDS ORDERED: IODIXANOL LOCM 50 ML BTL ONE (10:39)
[2017-05-31] MEDS ORDERED: IODIXANOL LOCM 100 ML BTL ONE (10:39)
--- NOTE | 2017-05-31 11:27 | RADRPT ---
PROCEDURE: CT angiogram of the abdomen and pelvis with 3-D reconstructions CLINICAL INDICATION: Mesenteric ischemia TECHNIQUE: CT angiogram of the abdomen and pelvis with lower extremity runoff was performed on a [employer] e[employer]covery CT scanner . The patient was scanned after administration of intravenous contrast (110 cc of Visipaque 320). Sagittal and coronal reformatted images were obtained from the axial source pelon ges. 3D MIP reformatted images were also created from the axial source images. DLP 1064.20 mGycm CTDI vol 41.08, 17.07 mGy One or more of the following dose reduction techniques were used: - Automated exposure control. - Adjustment of the mA and/or kV according to patient size. - Use of iterative reconstruction technique. COMPARISON: CT abdomen/pelvis from 05/30/2017 FINDINGS: ANGIOGRAM: There is no acute dissection or aneurysm of the abdominal aorta. There is severe narrowing at the origin of the celiac with only a faint string sign seen on sagittal image 77. The branches of the celiac axis are opacified, likely at least in part due to collaterals . There is moderate short segment narrowing of the proximal SMA (series 3, image 130). The main renal arteries are widely patent bilaterally. There is an accessory right renal artery whic h is widely patent. There is an accessory left renal artery which is widely patent. There is at least moderate narrowing at the origin of the PELON with a second focus of at least modera te narrowing proximally 85 sagittal image 79. The infrarenal aorta is diminutive in caliber, measuring up to 1.1 cm in diameter. There are non-onel w limiting near - circumferential atherosclerotic calcifications of the primarily infrarenal aorta. There is mild narrowing of the mid to distal right common iliac artery. The left common iliac artery is widely patent. Bilateral internal and external iliac arteries are widely patent. The right common femoral and profunda arteries are widely patent. There is moderate short segment na rrowing of the visualized proximal right superficial femoral artery on series 3, image 407. The left common femoral and profunda arteries are widely patent. There is short segment mild narrowi ng of the visualized proximal left superficial femoral artery on series 3, image 408. ANCILLARY: There is cholelithiasis. There is vicarious excretion of contrast into the gallbladder. There is a 2.3 cm simple left renal cyst. There is no evidence of pneumatosis intestinalis or portal venous gas. 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 There is a focus of short segment moderate narrowing in the proximal SMA. No evidence of pneumatosis intestinalis or portal venous gas to suggest mesenteric infarction. Cholelithiasis. RPTAT: EE Physician Carol Date Time Electronically viewed and signed by Riley Plascencia Physician on 05/31/2017 11:27 /
[2017-05-31] MEDS: ACETAMINOPHEN 325 MG TAB PO PRN (12:07)
--- NOTE | 2017-05-31 12:45 | CONS ---
Date/Time of Note Date/Time of Note DATE: 05/31/17 TIME: 12:30 Assessment/Plan Assessment/Plan Chief Complaint/Hosp Course NSTEMI: Trop up to 1.2 and consistent with chest pain and diffuse EKG changes. Concern for significant CAD based on EKG findings vs significant deman ischemia in setting of SBP 230 on admission. 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 Had two contrast studies but early for MILA DM HTN -ASA, plavix (home meds) -coreg -continue heparin drip -agree with IVF hydration -trend trops -echo -cath tomorrow if renal function stable or better. Npo after midnight Problems: Consultation Date/Type/Reason Admit Date/Time May 31, 2017 at 05:25 Date of Consultation: May 31, 2017 Type of Consultation: Cardiology Reason for Consultation NSTEMI Referring Provider: COREY KHAN Hx of Present Illness 86 yo F with a h/o CAD s/p 3 prior stents, DM, HTN, HL, who presented initially with abdominal pain/N/V. She then developed chest pain and was found to have an NSTEMI with trop so far up to 1.2. She had lactic acidosis as well and CT showed significant celiac and REVA disease. She notes that both her CP and abdominal pain have now resolved. per HPI Past Medical History per HPI Social History Alcohol Use: occasionally Smoking Status: Never smoker Drug Use: none Exam/Review of Systems Vital Signs Vitals Vital Signs Date Time Temp Pulse Resp B/P Pulse Ox O2 Delivery O2 Flow Rate FiO2 05/31/17 11:29 98.4 89 19 115/58 98 05/31/17 06:45 Nasal Cannula 2.0 Intake and Output 05/30/17 05/30/17 05/31/17 15:00 23:00 07:00 Intake Total 138 ml Balance 138 ml Exam Constitutional: alert, oriented Psych: no complaints Head: atraumatic, normocephalic Neck: supple, No jvd Respiratory: clear to auscultation, No crackles/rales Cardiovascular: regular rate and rhythm, No edema, No systolic murmur Gastrointestinal: non-tender, soft, No distended Neurological: nl mental status, nl speech Results EKG: sinus, diffuse <1mm ST depression with WILMER in aVR concerning for global ischemia. Result Diagram: 05/31/17 0150 05/31/17 0732 Results 24 hrs Laboratory Tests Test 05/30/17 20:30 05/30/17 21:03 05/30/17 23:00 05/30/17 23:10 White Blood Count 12.2 H Red Blood Count 4.37 Hemoglobin 12.4 Hematocrit 37.7 Mean Corpuscular Volume 86.3 Mean Corpuscular Hemoglobin 28.4 L Mean Corpuscular Hemoglobin Concent 32.9 Red Cell Distribution Width 13.3 Platelet Count 257 Mean Platelet Volume 9.5 Neutrophils % 87.3 H Lymphocytes % 10.1 L Monocytes % 2.0 Eosinophils % 0.0 Basophils % 0.2 Nucleated Red Blood Cells % 0.0 Neutrophils # 10.7 H Lymphocytes # 1.2 Monocytes # 0.3 Eosinophils # 0.0 Basophils # 0.0 Nucleated Red Blood Cells # 0.0 Sodium Level 141 Potassium Level 4.0 Chloride Level 104 Carbon Dioxide Level 19 L Anion Gap 22 H Blood Urea Nitrogen 20 Creatinine 0.98 Glucose Level 265 H Calcium Level 9.6 Total Bilirubin 0.4 Direct Bilirubin 0.00 Indirect Bilirubin 0.4 Aspartate Amino Transf (AST/SGOT) 26 Alanine Aminotransferase (ALT/SGPT) 36 Alkaline Phosphatase 100 Troponin I 0.642 *H 1.200 *H Total Protein 8.6 H Albumin 4.7 Globulin 3.90 H Albumin/Globulin Ratio 1.20 Lipase 323 H Urine Color STRAW Urine Clarity CLEAR Urine pH 8.0 Urine Specific [place] 1.007 Urine Ketones 1+ H Urine Nitrite NEGATIVE Urine Bilirubin NEGATIVE Urine Urobilinogen NEGATIVE Urine Leukocyte Esterase NEGATIVE Urine Microscopic RBC 3 Urine Microscopic WBC 4 Urine Hemoglobin NEGATIVE Urine Glucose 3+ H Urine Total Protein 2+ H Lactic Acid Level 3.9 *H Test 05/31/17 01:40 05/31/17 01:50 05/31/17 03:10 05/31/17 07:15 Lactic Acid Level 2.6 *H White Blood Count 16.8 #H Red Blood Count 4.32 Hemoglobin 12.2 Hematocrit 37.4 Mean Corpuscular Volume 86.6 Mean Corpuscular Hemoglobin 28.2 L Mean Corpuscular Hemoglobin Concent 32.6 Red Cell Distribution Width 13.5 Platelet Count 275 Mean Platelet Volume 9.6 Neutrophils % 92.5 H Lymphocytes % 4.7 L Monocytes % 2.3 Eosinophils % 0.0 Basophils % 0.1 Nucleated Red Blood Cells % 0.0 Neutrophils # 15.5 H Lymphocytes # 0.8 Monocytes # 0.4 Eosinophils # 0.0 Basophils # 0.0 Nucleated Red Blood Cells # 0.0 Prothrombin Time 13.3 Prothrombin Time Ratio 1.0 INR International Normalized Ratio 1.01 Activated Partial Thromboplast Time > 180.0 *H Blood Gas Specimen Source Blood arterial Arterial Blood Date Drawn 05/31/2017 7:50:11 AM Arterial Blood pH (Temp corrected) 7.397 Arterial Blood pCO2 (Temp correct) 42.5 Arterial Blood pO2 (Temp corrected) 104.0 H Arterial Blood HCO3 25.6 Arterial Blood Base Excess 0.6 Arterial Blood Oxygen Saturation 97.3 Marc Test ACCEPTAB Arterial Blood Gas Puncture Site Left Radial Arterial Blood Carboxyhemoglobin 0.3 Arterial Blood Methemoglobin 0.2 Blood Gas A-a O2 Differential 38.3 H Oxyhemoglobin Percent 96.8 Total Hemoglobin 11.8 L Blood Gas Temperature 37.0 Blood Gas Modality NASAL CANNULA FiO2 27.0 Blood Gas Notified Whom JLD Blood Gas Notified Time 05/31/2017 8:10:56 AM Test 05/31/17 07:31 05/31/17 07:32 05/31/17 08:31 05/31/17 12:02 Activated Partial Thromboplast Time 97.2 *H Lactic Acid Level 1.5 Sodium Level 140 Potassium Level 4.7 Chloride Level 106 Carbon Dioxide Level 25 Anion Gap 14 # Blood Urea Nitrogen 24 H Creatinine 1.24 H Glucose Level 295 H Hemoglobin A1c 8.0 H Calcium Level 8.7 Magnesium Level 1.5 L Total Bilirubin 0.3 Direct Bilirubin 0.00 Indirect Bilirubin 0.3 Aspartate Amino Transf (AST/SGOT) 30 Alanine Aminotransferase (ALT/SGPT) 38 Alkaline Phosphatase 70 C-Reactive Protein 2.6 H Total Protein 7.1 # Albumin 3.9 Globulin 3.20 Albumin/Globulin Ratio 1.21 Bedside Glucose 280 H 232 H Medications Medications Current Medications Morphine Sulfate 2 mg 2 mg Q4H PRN IV MODERATE PAIN LEVEL 4-6; Start 05/31/17 at 01:30 Sodium Chloride (NS) 1,000 ml @ 60 mls/hr [id number] IV Last administered on 05/31 02:30; Admin Dose 60 MLS/HR; Start 05/31/17 at 01:59 Acetaminophen (Tylenol Tab) 650 mg Q6H PRN PO PAIN LEVEL 1-3 OR FEVER Last administered on 05/31/17 12:07; Admin Dose 650 MG; Start 05/31/17 at 02:00 Pantoprazole (Protonix Iv) 40 mg DAILY@06 IV ; Start 05/31/17 at 06:00 Ondansetron HCl (Zofran Inj) 4 mg Q4H PRN IV NAUSEA AND/OR VOMITING Last administered on 05/31/17 02:30; Admin Dose 4 MG; Start 05/31/17 at 02:30 Insulin Aspart (Novolog Insulin Pen) NOVOLOG *MILD* ALGORI... Q4 SC Last administered on 05/31/17 12:13; Admin Dose 3 UNIT; Start 05/31/17 at 09:00 Miscellaneous Information 1 ea NOTE XX ; Start 05/31/17 at 06:15 Glucose (Glutose) 15 gm Q15M PRN PO DECREASED GLUCOSE; Start 05/31/17 at 06:15 Glucose (Glutose) 22.5 gm Q15M PRN PO DECREASED GLUCOSE; Start 05/31/17 at 06: 15 Dextrose (D50w Syringe) 25 ml Q15M PRN IV DECREASED GLUCOSE; Start 05/31/17 at 06:15 Dextrose (D50w Syringe) 50 ml Q15M PRN IV DECREASED GLUCOSE; Start 05/31/17 at 06:15 Glucagon (Glucagen) 1 mg Q15M PRN IM DECREASED GLUCOSE; Start 05/31/17 at 06:15 Glucose (Glutose) 15 gm Q15M PRN BUCCAL DECREASED GLUCOSE; Start 05/31/17 at 06 :15 Amlodipine Besylate (Norvasc) 10 mg DAILY PO Last administered on 05/31/17 09: 50; Admin Dose 10 MG; Start 05/31/17 at 09:00 Aspirin (Halfprin) 81 mg DAILY PO Last administered on 05/31/17 09:50; Admin Dose 81 MG; Start 05/31/17 at 09:00 Carvedilol (Coreg) 12.5 mg BID PO Last administered on 05/31/17 09:50; Admin Dose 12.5 MG; Start 05/31/17 at 09:00 Clopidogrel Bisulfate (plaVIX) 75 mg DAILY PO Last administered on 05/31/17 09 :49; Admin Dose 75 MG; Start 05/31/17 at 09:00 COLEMAN GARCIA May 31, 2017 12:40
[2017-05-31 12:50] LABS: CK-MB 6.82 ng/ml (0.0-2.4)
[2017-05-31 12:56] LABS: TROPONIN-I 2.23 ng/ml (0.00-0.12)
[2017-05-31 15:35] LABS: FREE T3 3.74 pg/ml (2.77-5.27)
[2017-05-31 15:49] LABS: THYROID STIMULATING HORMONE 0.3 MIU/L (0.465-4.680)
--- NOTE | 2017-05-31 17:16 | PN ---
Date/Time of Note Date/Time of Note DATE: 05/31/17 TIME: 17:05 Assessment/Plan VTE Prophylaxis VTE Prophylaxis Intervention: heparin Lines/Catheters IV Catheter Type (from Nrsg): Peripheral IV Assessment/Plan Assessment/Plan 1. NSTEMI - Cardiology on board and recommendations appreciated. Will plan for cath tmrw if improvement in renal function - Troponins have been trending upward and given patients presenting symptoms, chest pain most likely cardiac etiology with concern for CAD. Patient has [address] - ECHO - Continue home medications 3. Lactic acidosis- improved - Lactic acid was initially elevated but has normalized. May be secondary to metformin in setting of nausea and vomiting - No abdominal pain at this time and concern for mesenteric ischemia is low - Will continue monitoring 4. Epigastric pain - Will give PPI and if no relief, will consider GI - H/H stable 5. Diabetes Mellitus - A1c 8.0 - Will hold Metformin - ISS and accuchecks - Does not appear to be in DKA 6. Hypertension - Continue patient's home medications - Monitor and adjust as needed 7. H/o CAD - Resume Plavix/aspirin/beta javi 8. Disposition - Plan for Cath in am if ANITA resolved. NPO after midnight and continue IVF Subjective 24 Hr Interval Summary Free Text/Dictation Patient laying in bed comfortably and cooperative. Daughter at bedside. Patient only c/o mild discomfort in epigastric area but states got relief with PPI. No acute overnight events and no new complaints. IV left arm did infiltrate and mild swelling lateral aspect of antecubital fossa is present Exam/Review of Systems Vital Signs Vitals Vital Signs Date Time Temp Pulse Resp B/P Pulse Ox O2 Delivery O2 Flow Rate FiO2 05/31/17 16:16 98.3 83 18 91/43 96 05/31/17 08:00 Nasal Cannula 2.0 Intake and Output 05/30/17 05/30/17 05/31/17 15:00 23:00 07:00 Intake Total 138 ml Balance 138 ml Exam General: Pleasant, lying comfortably in bed in NAD Neck: Supple with full range of motion. Lungs: Clear to auscultation bilaterally no crackles rales or wheezing Heart: Normal S1-S2, Regular rhythm and rate. No murmur, S3, or S4 Abdomen: Soft, mild tenderness to palpation at the epigastric region, non distended no guarding or rebound Extremities: Normal to inspection, no edema no cyanosis Neurologic: Normal mental status, speech normal, cranial nerves II through XII are intact, motor and sensory are intact, no focal weakness Results Result Diagram: 05/31/17 0150 05/31/17 0732 Results 24 hrs Laboratory Tests Test 05/30/17 19:59 05/30/17 20:30 05/30/17 21:03 05/30/17 23:00 Bedside Glucose 227 H White Blood Count 12.2 H Red Blood Count 4.37 Hemoglobin 12.4 Hematocrit 37.7 Mean Corpuscular Volume 86.3 Mean Corpuscular Hemoglobin 28.4 L Mean Corpuscular Hemoglobin Concent 32.9 Red Cell Distribution Width 13.3 Platelet Count 257 Mean Platelet Volume 9.5 Neutrophils % 87.3 H Lymphocytes % 10.1 L Monocytes % 2.0 Eosinophils % 0.0 Basophils % 0.2 Nucleated Red Blood Cells % 0.0 Neutrophils # 10.7 H Lymphocytes # 1.2 Monocytes # 0.3 Eosinophils # 0.0 Basophils # 0.0 Nucleated Red Blood Cells # 0.0 Sodium Level 141 Potassium Level 4.0 Chloride Level 104 Carbon Dioxide Level 19 L Anion Gap 22 H Blood Urea Nitrogen 20 Creatinine 0.98 Glucose Level 265 H Calcium Level 9.6 Total Bilirubin 0.4 Direct Bilirubin 0.00 Indirect Bilirubin 0.4 Aspartate Amino Transf (AST/SGOT) 26 Alanine Aminotransferase (ALT/SGPT) 36 Alkaline Phosphatase 100 Troponin I 0.642 *H 1.200 *H Total Protein 8.6 H Albumin 4.7 Globulin 3.90 H Albumin/Globulin Ratio 1.20 Lipase 323 H Urine Color STRAW Urine Clarity CLEAR Urine pH 8.0 Urine Specific Ovando 1.007 Urine Ketones 1+ H Urine Nitrite NEGATIVE Urine Bilirubin NEGATIVE Urine Urobilinogen NEGATIVE Urine Leukocyte Esterase NEGATIVE Urine Microscopic RBC 3 Urine Microscopic WBC 4 Urine Hemoglobin NEGATIVE Urine Glucose 3+ H Urine Total Protein 2+ H Test 05/30/17 23:10 05/31/17 01:40 05/31/17 01:50 05/31/17 03:10 Lactic Acid Level 3.9 *H 2.6 *H White Blood Count 16.8 #H Red Blood Count 4.32 Hemoglobin 12.2 Hematocrit 37.4 Mean Corpuscular Volume 86.6 Mean Corpuscular Hemoglobin 28.2 L Mean Corpuscular Hemoglobin Concent 32.6 Red Cell Distribution Width 13.5 Platelet Count 275 Mean Platelet Volume 9.6 Neutrophils % 92.5 H Lymphocytes % 4.7 L Monocytes % 2.3 Eosinophils % 0.0 Basophils % 0.1 Nucleated Red Blood Cells % 0.0 Neutrophils # 15.5 H Lymphocytes # 0.8 Monocytes # 0.4 Eosinophils # 0.0 Basophils # 0.0 Nucleated Red Blood Cells # 0.0 Prothrombin Time 13.3 Prothrombin Time Ratio 1.0 INR International Normalized Ratio 1.01 Activated Partial Thromboplast Time > 180.0 *H Test 05/31/17 07:15 05/31/17 07:31 05/31/17 07:32 05/31/17 08:31 Blood Gas Specimen Source Blood arterial Arterial Blood Date Drawn 05/31/2017 7:50:11 AM Arterial Blood pH (Temp corrected) 7.397 Arterial Blood pCO2 (Temp correct) 42.5 Arterial Blood pO2 (Temp corrected) 104.0 H Arterial Blood HCO3 25.6 Arterial Blood Base Excess 0.6 Arterial Blood Oxygen Saturation 97.3 Amrc Test ACCEPTAB Arterial Blood Gas Puncture Site Left Radial Arterial Blood Carboxyhemoglobin 0.3 Arterial Blood Methemoglobin 0.2 Blood Gas A-a O2 Differential 38.3 H Oxyhemoglobin Percent 96.8 Total Hemoglobin 11.8 L Blood Gas Temperature 37.0 Blood Gas Modality NASAL CANNULA FiO2 27.0 Blood Gas Notified Whom JLD Blood Gas Notified Time 05/31/2017 8:10:56 AM Activated Partial Thromboplast Time 97.2 *H Lactic Acid Level 1.5 Sodium Level 140 Potassium Level 4.7 Chloride Level 106 Carbon Dioxide Level 25 Anion Gap 14 # Blood Urea Nitrogen 24 H Creatinine 1.24 H Glucose Level 295 H Hemoglobin A1c 8.0 H Calcium Level 8.7 Magnesium Level 1.5 L Total Bilirubin 0.3 Direct Bilirubin 0.00 Indirect Bilirubin 0.3 Aspartate Amino Transf (AST/SGOT) 30 Alanine Aminotransferase (ALT/SGPT) 38 Alkaline Phosphatase 70 C-Reactive Protein 2.6 H Total Protein 7.1 # Albumin 3.9 Globulin 3.20 Albumin/Globulin Ratio 1.21 Bedside Glucose 280 H Test 05/31/17 11:47 05/31/17 12:02 05/31/17 15:18 Creatine Kinase 119 Creatine Kinase Index 5.7 Creatinine Kinase MB (Mass) 6.82 H Troponin I 2.230 *H Thyroid Stimulating Hormone (TSH) 0.300 L Free Thyroxine 1.43 Free Triiodothyronine (T3) pg/mL 3.74 Bedside Glucose 232 H Activated Partial Thromboplast Time 94.9 *H Medications Medications Current Medications Morphine Sulfate 2 mg 2 mg Q4H PRN IV MODERATE PAIN LEVEL 4-6; Start 05/31/17 at 01:30 Sodium Chloride (NS) 1,000 ml @ 60 mls/hr [id number] IV Last administered on 05/31 02:30; Admin Dose 60 MLS/HR; Start 05/31/17 at 01:59 Acetaminophen (Tylenol Tab) 650 mg Q6H PRN PO PAIN LEVEL 1-3 OR FEVER Last administered on 05/31/17 12:07; Admin Dose 650 MG; Start 05/31/17 at 02:00 Pantoprazole (Protonix Iv) 40 mg DAILY@06 IV ; Start 05/31/17 at 06:00 Ondansetron HCl (Zofran Inj) 4 mg Q4H PRN IV NAUSEA AND/OR VOMITING Last administered on 05/31/17 02:30; Admin Dose 4 MG; Start 05/31/17 at 02:30 Insulin Aspart (Novolog Insulin Pen) NOVOLOG *MILD* ALGORI... Q4 SC Last administered on 05/31/17 12:13; Admin Dose 3 UNIT; Start 05/31/17 at 09:00 Miscellaneous Information 1 ea NOTE XX ; Start 05/31/17 at 06:15 Glucose (Glutose) 15 gm Q15M PRN PO DECREASED GLUCOSE; Start 05/31/17 at 06:15 Glucose (Glutose) 22.5 gm Q15M PRN PO DECREASED GLUCOSE; Start 05/31/17 at 06: 15 Dextrose (D50w Syringe) 25 ml Q15M PRN IV DECREASED GLUCOSE; Start 05/31/17 at 06:15 Dextrose (D50w Syringe) 50 ml Q15M PRN IV DECREASED GLUCOSE; Start 05/31/17 at 06:15 Glucagon (Glucagen) 1 mg Q15M PRN IM DECREASED GLUCOSE; Start 05/31/17 at 06:15 Glucose (Glutose) 15 gm Q15M PRN BUCCAL DECREASED GLUCOSE; Start 05/31/17 at 06 :15 Amlodipine Besylate (Norvasc) 10 mg DAILY PO Last administered on 05/31/17 09: 50; Admin Dose 10 MG; Start 05/31/17 at 09:00 Aspirin (Halfprin) 81 mg DAILY PO Last administered on 05/31/17 09:50; Admin Dose 81 MG; Start 05/31/17 at 09:00 Carvedilol (Coreg) 12.5 mg BID PO Last administered on 05/31/17 09:50; Admin Dose 12.5 MG; Start 05/31/17 at 09:00 Clopidogrel Bisulfate (plaVIX) 75 mg DAILY PO Last administered on 05/31/17 09 :49; Admin Dose 75 MG; Start 05/31/17 at 09:00 KATIUSKA RODRIGUEZ MD May 31, 2017 17:16
--- NOTE | 2017-05-31 18:49 | RADRPT ---
Echocardiogram Report Patient Name: CHADWICK BREWSTER Gender: Female Date: 1930 Study Date: 31-May-2017 [employer] Salesperson: Denise Quintero [facility] Location: [id number] Ref. Physician: COREY KHAN Quality: Adequate Procedures: Transthoracic echocardiogram with complete 2D, M-Mode, and doppler examination. Indications: NSTEMI. 2D/M Mode Doppler Measurement Value Normal Ranges Measurement Value Normal Ranges LVIDd 2D 3.5 3.5 - 5.6 cm AV Peak Richie 1.2 m/sec LVIDs 2D 1.9 2.1 - 4.1 cm AV Peak PG 5.7 mmHg LVPWd 2D 1.0 0.6 - 1.1 cm LVOT Peak Richie 1.0 m/sec IVSd 2D 1.0 0.6 - 1.1 cm LVOT Peak PG 3.9 mmHg AoR Diam 2D 2.6 2.0 - 3.7 cm MV E Peak Richie 0.9 m/sec EDV 2D 52.2 cm3 MV A Peak Richie 1.2 m/sec ESV 2D 7.4 cm3 MV E/A 0.7 LA Dimen 2D 3.2 2.3 - 4.0 cm MV Decel Time 172 msec MV Decel [place] 5 MV E/A 0.7 TR Peak Richie 2.6 m/sec TR Peak PG 26.4 mmHg RVSP 29.0 mmHg Findings Left Ventricle: Normal left ventricular systolic function. Normal left ventricular cavity size. Normal left ventricular wall thickness. Ejection fraction is visually estimated at 55 %. Tissue Doppler/Mitral Doppler indices are consistent with impaired relaxation (Stage I diastolic dysfunction). Right Ventricle: Normal right ventricular size. Normal right ventricular systolic function. Left Atrium: The left atrium is normal in size. Right Atrium: The right atrium is normal in size. Mitral Valve: Mild mitral annular calcification. Trace mitral regurgitation. Aortic Valve: Normal appearance of the aortic valve. Aortic cusps appear mildly calcified. Mild aortic valve regurgitation. Tricuspid Valve: Normal appearance of the tricuspid valve. Estimated peak PA systolic pressure 29 mmHg. There is mild tricuspid regurgitation. Pulmonic Valve: Normal pulmonic valve appearance. Pericardium: Normal pericardium with no significant pericardial effusion. Aorta: Normal aortic root. IVC: Normal size and normal respiratory collapse consistent with normal right atrial pressure. Conclusions 1.Normal left ventricular systolic function. Normal left ventricular cavity size. Normal left ventricular wall thickness. Ejection fraction is visually estimated at 55 %. Tissue Doppler/Mitral Doppler indices are consistent with impaired relaxation (Stage I diastolic dysfunction). Possible mild hypokinesis of the anterior wall. 2.Mild aortic valve regurgitation. 3.Estimated peak PA systolic pressure 29 mmHg based on RA pressure of 3 mmHg. Electronically Signed By: Zhao Duron 31-May-2017 18:49:23 -0700 Patient Name: CHADWICK BREWSTER Study Date: 31-May-2017 [id number]
[2017-05-31 19:00] LABS: CK-MB 4.68 ng/ml (0.0-2.4)
[2017-05-31 19:01] LABS: TROPONIN-I 1.91 ng/ml (0.00-0.12)
[2017-06-01] VITALS (11 sets, daily range): BP systolic 95–130; BP diastolic 50–58; PULSE 72–83; RESP 16–18
[2017-06-01] MEDS: INSULIN ASPART [NOVOLOG] 3 ML PEN SC SCH ×6 (01:19→21:32)
[2017-06-01] MEDS ORDERED: ACCU-CHEK XX SCH (02:00)
[2017-06-01 02:02] LABS: CK-MB 3.91 ng/ml (0.0-2.4)
[2017-06-01 02:04] LABS: TROPONIN-I 1.47 ng/ml (0.00-0.12)
[2017-06-01] MEDS: PANTOPRAZOLE 40 MG INJ IV SCH (05:44)
[2017-06-01 06:00] LABS: BASOPHILS % 0.4 % (0.0-2.0); EOSINOPHILS # 0.1 10^3/ul (0.0-0.5); EOSINOPHILS % 0.6 % (0.0-7.0); HEMATOCRIT 29.3 % (37.0-47.0); HEMOGLOBIN 9.5 g/dl (12.0-16.0); LYMPHOCYTES # 3.2 10^3/ul (0.8-2.9); MEAN CORPUSCULAR HEMOGLOBIN 28.4 pg (29.0-33.0); MEAN CORPUSCULAR HGB CONC 32.4 g/dl (32.0-37.0); MEAN CORPUSCULAR VOLUME 87.5 fl (82.0-101.0); MEAN PLATELET VOLUME 9.9 fl (7.4-10.4); MONOCYTE # 0.6 10^3/ul (0.3-0.9); MONOCYTES % 5.1 % (0.0-11.0); NEUTROPHIL # 7.5 10^3/ul (1.6-7.5); NEUTROPHILS % 65.5 % (39.0-77.0); PLATELET COUNT 232 10^3/UL (140-415); RED BLOOD COUNT 3.35 10^6/ul (4.20-5.40); RED CELL DISTRIBUTION WIDTH 14.2 % (11.5-14.5); WHITE BLOOD COUNT 11.4 10^3/ul (4.8-10.8)
[2017-06-01 06:31] LABS: ALBUMIN 3.3 g/dl (3.3-4.9); CALCIUM 8.2 mg/dl (8.4-10.2); CREATININE 2.39 mg/dl (0.44-1.00); MAGNESIUM 1.7 mg/dl (1.7-2.5); PHOSPHORUS 4.3 mg/dl (2.5-4.9)
[2017-06-01] MEDS: HEPARIN 25000 UNITS/250 ML 250 ML IV SCH (06:49)
[2017-06-01] MEDS: CLOPIDOGREL 75 MG TAB PO SCH (09:37)
[2017-06-01] MEDS: ASPIRIN (EC) 81 MG TAB PO SCH (09:38)
[2017-06-01] MEDS: AMLODIPINE 10 MG TAB PO SCH (09:39)
--- NOTE | 2017-06-01 11:07 | CONS ---
Date/Time of Note Date/Time of Note DATE: 06/01/17 TIME: 11:01 Assessment/Plan Assessment/Plan Chief Complaint/Hosp Course NSTEMI: Trop up to 2.3 and consistent with chest pain and diffuse EKG changes. Concern for significant CAD based on EKG findings vs significant demand ischemia in setting of SBP 230 on admission. Pt is agreeable to cardiac cath. Delayed due to renal dysfunction. Acute renal failure: Cr now up to 2.4. Had two contrast studies so likely MILA especially in the setting of volume depletion from vomiting. Abdominal pain: possible mesenteric ischemia in setting of CT e/o celiac and REVA disease as well as lactic acidosis. 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 Ok to feed her. Earliest next available slot is Sunday afternoon which is reasonable as she will likely need several days for her renal function to improve. Problems: Consultation Date/Type/Reason Admit Date/Time May 31, 2017 at 05:25 Initial Consult Date 05/31/17 Type of Consultation: Cardiology Referring Provider: COREY KHAN 24 HR Interval Summary Free Text/Dictation Trops peaked at 2.3, downtrending. No chest pain. Cr unfortunately now up to 2.4. Making urine. Exam/Review of Systems Vital Signs Vitals Vital Signs Date Time Temp Pulse Resp B/P Pulse Ox O2 Delivery O2 Flow Rate FiO2 06/01/17 09:02 79 06/01/17 07:56 98.1 18 104/50 96 05/31/17 20:00 Nasal Cannula 2.0 Intake and Output 05/31/17 05/31/17 06/01/17 15:00 23:00 07:00 Intake Total 1195 ml 232.5 ml Output Total 780 ml 530 ml Balance 415 ml -297.5 ml Exam Constitutional: alert, oriented Psych: nl mood/affect, no complaints Head: atraumatic, normocephalic Neck: No jvd Respiratory: clear to auscultation, No crackles/rales Cardiovascular: regular rate and rhythm, No edema, No systolic murmur Gastrointestinal: non-tender, soft Neurological: nl mental status, nl speech Results Result Diagram: 06/01/17 0532 06/01/17 0532 Results 24 hrs Laboratory Tests Test 05/31/17 11:47 05/31/17 12:02 05/31/17 15:18 05/31/17 17:24 Creatine Kinase 119 Creatine Kinase Index 5.7 Creatinine Kinase MB (Mass) 6.82 H Troponin I 2.230 *H Thyroid Stimulating Hormone (TSH) 0.300 L Free Thyroxine 1.43 Free Triiodothyronine (T3) pg/mL 3.74 Bedside Glucose 232 H 194 Activated Partial Thromboplast Time 94.9 *H Test 05/31/17 18:13 05/31/17 21:28 05/31/17 22:33 06/01/17 00:55 Creatine Kinase 104 97 Creatine Kinase Index 4.5 4.0 Creatinine Kinase MB (Mass) 4.68 H 3.91 H Troponin I 1.910 *H 1.470 *H Bedside Glucose 175 Activated Partial Thromboplast Time 71.9 *H Test 06/01/17 01:16 06/01/17 05:03 06/01/17 05:32 06/01/17 09:32 Bedside Glucose 235 H 126 142 White Blood Count 11.4 #H Red Blood Count 3.35 #L Hemoglobin 9.5 #L Hematocrit 29.3 #L Mean Corpuscular Volume 87.5 Mean Corpuscular Hemoglobin 28.4 L Mean Corpuscular Hemoglobin Concent 32.4 Red Cell Distribution Width 14.2 Platelet Count 232 Mean Platelet Volume 9.9 Neutrophils % 65.5 Lymphocytes % 28.0 Monocytes % 5.1 Eosinophils % 0.6 Basophils % 0.4 Nucleated Red Blood Cells % 0.0 Neutrophils # 7.5 Lymphocytes # 3.2 H Monocytes # 0.6 Eosinophils # 0.1 Basophils # 0.0 Nucleated Red Blood Cells # 0.0 Activated Partial Thromboplast Time 67.7 H Sodium Level 140 Potassium Level 4.0 Chloride Level 108 Carbon Dioxide Level 26 Anion Gap 10 Blood Urea Nitrogen 38 #H Creatinine 2.39 #H Glucose Level 116 # Calcium Level 8.2 L Phosphorus Level 4.3 Magnesium Level 1.7 Albumin 3.3 Medications Medications Current Medications Morphine Sulfate 2 mg 2 mg Q4H PRN IV MODERATE PAIN LEVEL 4-6; Start 05/31/17 at 01:30 Sodium Chloride (NS) 1,000 ml @ 60 mls/hr [id number] IV Last administered on 05/31 23:19; Admin Dose 60 MLS/HR; Start 05/31/17 at 01:59 Acetaminophen (Tylenol Tab) 650 mg Q6H PRN PO PAIN LEVEL 1-3 OR FEVER Last administered on 05/31/17 12:07; Admin Dose 650 MG; Start 05/31/17 at 02:00 Pantoprazole (Protonix Iv) 40 mg DAILY@06 IV Last administered on 06/01/17 05: 44; Admin Dose 40 MG; Start 05/31/17 at 06:00 Ondansetron HCl (Zofran Inj) 4 mg Q4H PRN IV NAUSEA AND/OR VOMITING Last administered on 05/31/17 02:30; Admin Dose 4 MG; Start 05/31/17 at 02:30 Insulin Aspart (Novolog Insulin Pen) NOVOLOG *MILD* ALGORI... Q4 SC Last administered on 06/01/17 09:44; Admin Dose 1 UNIT; Start 05/31/17 at 09:00 Miscellaneous Information 1 ea NOTE XX ; Start 05/31/17 at 06:15 Glucose (Glutose) 15 gm Q15M PRN PO DECREASED GLUCOSE; Start 05/31/17 at 06:15 Glucose (Glutose) 22.5 gm Q15M PRN PO DECREASED GLUCOSE; Start 05/31/17 at 06: 15 Dextrose (D50w Syringe) 25 ml Q15M PRN IV DECREASED GLUCOSE; Start 05/31/17 at 06:15 Dextrose (D50w Syringe) 50 ml Q15M PRN IV DECREASED GLUCOSE; Start 05/31/17 at 06:15 Glucagon (Glucagen) 1 mg Q15M PRN IM DECREASED GLUCOSE; Start 05/31/17 at 06:15 Glucose (Glutose) 15 gm Q15M PRN BUCCAL DECREASED GLUCOSE; Start 05/31/17 at 06 :15 Amlodipine Besylate (Norvasc) 10 mg DAILY PO Last administered on 06/01/17 09: 39; Admin Dose 10 MG; Start 05/31/17 at 09:00 Aspirin (Halfprin) 81 mg DAILY PO Last administered on 06/01/17 09:38; Admin Dose 81 MG; Start 05/31/17 at 09:00 Carvedilol (Coreg) 12.5 mg BID PO Last administered on 06/01/17 09:38; Admin Dose 12.5 MG; Start 05/31/17 at 09:00 Clopidogrel Bisulfate (plaVIX) 75 mg DAILY PO Last administered on 06/01/17 09 :37; Admin Dose 75 MG; Start 05/31/17 at 09:00 COLEMAN GARCIA Jun 01, 2017 11:07
[2017-06-01] MEDS: SOD CHLORIDE 0.9% 1,000 ML IV SCH (16:07)
[2017-06-02] VITALS (10 sets, daily range): BP systolic 117–143; BP diastolic 54–64; PULSE 69–81; RESP 16–19
[2017-06-02] MEDS: INSULIN ASPART [NOVOLOG] 3 ML PEN SC SCH ×6 (00:30→20:48)
[2017-06-02] MEDS: PANTOPRAZOLE 40 MG INJ IV SCH (06:01)
[2017-06-02 06:33] LABS: BASOPHILS % 0.4 % (0.0-2.0); EOSINOPHILS # 0.1 10^3/ul (0.0-0.5); HEMATOCRIT 29.2 % (37.0-47.0); HEMOGLOBIN 9.3 g/dl (12.0-16.0); LYMPHOCYTES # 2.4 10^3/ul (0.8-2.9); LYMPHOCYTES % 29.8 % (15.0-51.0); MEAN CORPUSCULAR HGB CONC 31.8 g/dl (32.0-37.0); MEAN PLATELET VOLUME 10.1 fl (7.4-10.4); MONOCYTE # 0.6 10^3/ul (0.3-0.9); MONOCYTES % 7.1 % (0.0-11.0); NEUTROPHIL # 4.9 10^3/ul (1.6-7.5); NEUTROPHILS % 61.4 % (39.0-77.0); PLATELET COUNT 197 10^3/UL (140-415); RED BLOOD COUNT 3.32 10^6/ul (4.20-5.40); RED CELL DISTRIBUTION WIDTH 13.8 % (11.5-14.5); WHITE BLOOD COUNT 7.9 10^3/ul (4.8-10.8)
[2017-06-02 07:10] LABS: ALBUMIN 2.8 g/dl (3.3-4.9); CALCIUM 8.2 mg/dl (8.4-10.2); CREATININE 2.35 mg/dl (0.44-1.00); MAGNESIUM 1.5 mg/dl (1.7-2.5); POTASSIUM 4.2 mmol/L (3.5-5.1)
--- NOTE | 2017-06-02 09:18 | CONS ---
Date/Time of Note Date/Time of Note DATE: 06/02/17 TIME: 09:16 Assessment/Plan Assessment/Plan Chief Complaint/Hosp Course NSTEMI: Trop up to 2.3 and consistent with chest pain and diffuse EKG changes. Concern for significant CAD based on EKG findings vs significant demand ischemia in setting of SBP 230 on admission. Pt is agreeable to cardiac cath. Delayed due to renal dysfunction. Acute renal failure: Had two contrast studies so likely MILA especially in the setting of volume depletion from vomiting. Cr now stabilized at 2.4. Expect improvement tomorrow Abdominal pain: possible mesenteric ischemia in setting of CT e/o celiac and REVA disease as well as lactic acidosis. 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 No chest pain. Cr stabilized Exam/Review of Systems Vital Signs Vitals Vital Signs Date Time Temp Pulse Resp B/P Pulse Ox O2 Delivery O2 Flow Rate FiO2 06/02/17 08:10 81 06/02/17 08:05 98.4 19 135/60 98 06/01/17 20:00 Nasal Cannula 2.0 Exam Constitutional: alert, oriented Psych: no complaints Head: atraumatic, normocephalic Neck: No jvd Respiratory: clear to auscultation, No crackles/rales Cardiovascular: regular rate and rhythm, No edema, No systolic murmur Gastrointestinal: non-tender, soft Neurological: nl mental status, nl speech Results Result Diagram: 06/02/17 0613 06/02/1714 Results 24 hrs Laboratory Tests Test 06/01/17 09:32 06/01/17 11:59 06/01/17 12:35 06/01/17 16:52 Bedside Glucose 142 181 301 H Activated Partial Thromboplast Time 58.0 H Test 06/01/17 21:29 06/02/17 00:23 06/02/17 06:00 06/02/17 06:13 Bedside Glucose 216 298 H 204 White Blood Count 7.9 # Red Blood Count 3.32 L Hemoglobin 9.3 L Hematocrit 29.2 L Mean Corpuscular Volume 88.0 Mean Corpuscular Hemoglobin 28.0 L Mean Corpuscular Hemoglobin Concent 31.8 L Red Cell Distribution Width 13.8 Platelet Count 197 Mean Platelet Volume 10.1 Neutrophils % 61.4 Lymphocytes % 29.8 Monocytes % 7.1 Eosinophils % 1.0 Basophils % 0.4 Nucleated Red Blood Cells % 0.0 Neutrophils # 4.9 Lymphocytes # 2.4 Monocytes # 0.6 Eosinophils # 0.1 Basophils # 0.0 Nucleated Red Blood Cells # 0.0 Test 06/02/17 06:14 Activated Partial Thromboplast Time 57.6 H Sodium Level 138 Potassium Level 4.2 Chloride Level 110 Carbon Dioxide Level 22 Anion Gap 10 Blood Urea Nitrogen 39 H Creatinine 2.35 H Glucose Level 174 Calcium Level 8.2 L Phosphorus Level 4.0 Magnesium Level 1.5 L Albumin 2.8 L Medications Medications Current Medications Morphine Sulfate 2 mg 2 mg Q4H PRN IV MODERATE PAIN LEVEL 4-6; Start 05/31/17 at 01:30 Sodium Chloride (NS) 1,000 ml @ 60 mls/hr [id number] IV Last administered on 06/01 16:07; Admin Dose 60 MLS/HR; Start 05/31/17 at 01:59 Acetaminophen (Tylenol Tab) 650 mg Q6H PRN PO PAIN LEVEL 1-3 OR FEVER Last administered on 05/31/17 12:07; Admin Dose 650 MG; Start 05/31/17 at 02:00 Pantoprazole (Protonix Iv) 40 mg DAILY@06 IV Last administered on 06/02/17 06: 01; Admin Dose 40 MG; Start 05/31/17 at 06:00 Ondansetron HCl (Zofran Inj) 4 mg Q4H PRN IV NAUSEA AND/OR VOMITING Last administered on 05/31/17 02:30; Admin Dose 4 MG; Start 05/31/17 at 02:30 Insulin Aspart (Novolog Insulin Pen) NOVOLOG *MILD* ALGORI... Q4 SC Last administered on 06/02/17 06:02; Admin Dose 2 UNIT; Start 05/31/17 at 09:00 Miscellaneous Information 1 ea NOTE XX ; Start 05/31/17 at 06:15 Glucose (Glutose) 15 gm Q15M PRN PO DECREASED GLUCOSE; Start 05/31/17 at 06:15 Glucose (Glutose) 22.5 gm Q15M PRN PO DECREASED GLUCOSE; Start 05/31/17 at 06: 15 Dextrose (D50w Syringe) 25 ml Q15M PRN IV DECREASED GLUCOSE; Start 05/31/17 at 06:15 Dextrose (D50w Syringe) 50 ml Q15M PRN IV DECREASED GLUCOSE; Start 05/31/17 at 06:15 Glucagon (Glucagen) 1 mg Q15M PRN IM DECREASED GLUCOSE; Start 05/31/17 at 06:15 Glucose (Glutose) 15 gm Q15M PRN BUCCAL DECREASED GLUCOSE; Start 05/31/17 at 06 :15 Amlodipine Besylate (Norvasc) 10 mg DAILY PO Last administered on 06/01/17 09: 39; Admin Dose 10 MG; Start 05/31/17 at 09:00 Aspirin (Halfprin) 81 mg DAILY PO Last administered on 06/01/17 09:38; Admin Dose 81 MG; Start 05/31/17 at 09:00 Carvedilol (Coreg) 12.5 mg BID PO Last administered on 06/01/17 21:31; Admin Dose 12.5 MG; Start 05/31/17 at 09:00 Clopidogrel Bisulfate (plaVIX) 75 mg DAILY PO Last administered on 06/01/17 09 :37; Admin Dose 75 MG; Start 05/31/17 at 09:00 COLEMAN GARCIA Jun 02, 2017 09:18
[2017-06-02] MEDS: CLOPIDOGREL 75 MG TAB PO SCH (09:54)
[2017-06-02] MEDS: ASPIRIN (EC) 81 MG TAB PO SCH (09:54)
[2017-06-02] MEDS: AMLODIPINE 10 MG TAB PO SCH (09:54)
[2017-06-02] MEDS ORDERED: MAGNESIUM SULFATE 4 GM/100 ML 100 ML IVPB ONE (13:00)
--- NOTE | 2017-06-02 13:51 | PN ---
Date/Time of Note Date/Time of Note DATE: 06/02/17 TIME: 13:39 Assessment/Plan VTE Prophylaxis VTE Prophylaxis Intervention: heparin Lines/Catheters IV Catheter Type (from Nrsg): Peripheral IV Assessment/Plan Assessment/Plan 1. NSTEMI - Cardiology on board and recommendations appreciated. in setting of ANITA due to multiple imaging studies, will hold off on Cath until improvement of renal function. Scheduled for Sunday - Patient continued on heparin drip and no further episodes of chest pain - ECHO showed EF 55%, with impaired relaxation with stage I diastolic dysfunction - Continue home medications 2. Narrowing Celiac, REVA and SMA - Patient not experiencing any abdominal discomfort - Will consult Vascular Surgery, Dr. Ricketts for further recommendations - Currently on heparin drip for NSTEMI 3. Diabetes Mellitus - A1c 8.0 - Will hold Metformin - ISS and accuchecks 5. Hypertension - Continue patient's home medications - Monitor and adjust as needed 6. H/o CAD - Continue Plavix/aspirin/beta javi 7. HypoMg - replaced 8. Disposition - Plan for cath as soon as recovery of ANITA - Tentatively on schedule for Wednesday 06/06 Subjective 24 Hr Interval Summary Free Text/Dictation Patient doing well and no new complaints with no overnight events. Family at bedside and all answers addressed. Patient has slight epigastric discomfort but denies any nausea, vomiting, diarrhea, constipation or lower abdominal pain. Exam/Review of Systems Vital Signs Vitals Vital Signs Date Time Temp Pulse Resp B/P Pulse Ox O2 Delivery O2 Flow Rate FiO2 06/02/17 12:07 69 06/02/17 11:57 98.0 18 121/54 98 06/01/17 20:00 Nasal Cannula 2.0 Exam General: Pleasant, lying comfortably in bed in NAD Neck: Supple with full range of motion. Lungs: Clear to auscultation bilaterally no crackles rales or wheezing Heart: Normal S1-S2, Regular rhythm and rate. No murmur, S3, or S4 Abdomen: Soft, mild tenderness to palpation at the epigastric region, non distended no guarding or rebound Extremities: Normal to inspection, no edema no cyanosis Neurologic: Normal mental status, speech normal, cranial nerves II through XII are intact, motor and sensory are intact, no focal weakness Results Result Diagram: 06/02/17 0613 06/02/17 0614 Results 24 hrs Laboratory Tests Test 06/01/17 16:52 06/01/17 21:29 06/02/17 00:23 06/02/17 06:00 Bedside Glucose 301 H 216 298 H 204 Test 06/02/17 06:13 06/02/17 06:14 06/02/17 09:28 06/02/17 12:23 White Blood Count 7.9 # Red Blood Count 3.32 L Hemoglobin 9.3 L Hematocrit 29.2 L Mean Corpuscular Volume 88.0 Mean Corpuscular Hemoglobin 28.0 L Mean Corpuscular Hemoglobin Concent 31.8 L Red Cell Distribution Width 13.8 Platelet Count 197 Mean Platelet Volume 10.1 Neutrophils % 61.4 Lymphocytes % 29.8 Monocytes % 7.1 Eosinophils % 1.0 Basophils % 0.4 Nucleated Red Blood Cells % 0.0 Neutrophils # 4.9 Lymphocytes # 2.4 Monocytes # 0.6 Eosinophils # 0.1 Basophils # 0.0 Nucleated Red Blood Cells # 0.0 Activated Partial Thromboplast Time 57.6 H Sodium Level 138 Potassium Level 4.2 Chloride Level 110 Carbon Dioxide Level 22 Anion Gap 10 Blood Urea Nitrogen 39 H Creatinine 2.35 H Glucose Level 174 Calcium Level 8.2 L Phosphorus Level 4.0 Magnesium Level 1.5 L Albumin 2.8 L Bedside Glucose 159 256 H Medications Medications Current Medications Morphine Sulfate (morphine) 2 mg Q4H PRN IV MODERATE PAIN LEVEL 4-6; Start 05/31/17 at 01:30 Acetaminophen (Tylenol Tab) 650 mg Q6H PRN PO PAIN LEVEL 1-3 OR FEVER Last administered on 05/31/17 12:07; Admin Dose 650 MG; Start 05/31/17 at 02:00 Pantoprazole (Protonix Iv) 40 mg DAILY@06 IV Last administered on 06/02/17 06: 01; Admin Dose 40 MG; Start 05/31/17 at 06:00 Ondansetron HCl (Zofran Inj) 4 mg Q4H PRN IV NAUSEA AND/OR VOMITING Last administered on 05/31/17 02:30; Admin Dose 4 MG; Start 05/31/17 at 02:30 Insulin Aspart (Novolog Insulin Pen) NOVOLOG *MILD* ALGORI... Q4 SC Last administered on 06/02/17 12:28; Admin Dose 3 UNIT; Start 05/31/17 at 09:00 Miscellaneous Information 1 ea NOTE XX ; Start 05/31/17 at 06:15 Glucose (Glutose) 15 gm Q15M PRN PO DECREASED GLUCOSE; Start 05/31/17 at 06:15 Glucose (Glutose) 22.5 gm Q15M PRN PO DECREASED GLUCOSE; Start 05/31/17 at 06: 15 Dextrose (D50w Syringe) 25 ml Q15M PRN IV DECREASED GLUCOSE; Start 05/31/17 at 06:15 Dextrose (D50w Syringe) 50 ml Q15M PRN IV DECREASED GLUCOSE; Start 05/31/17 at 06:15 Glucagon (Glucagen) 1 mg Q15M PRN IM DECREASED GLUCOSE; Start 05/31/17 at 06:15 Glucose (Glutose) 15 gm Q15M PRN BUCCAL DECREASED GLUCOSE; Start 05/31/17 at 06 :15 Amlodipine Besylate (Norvasc) 10 mg DAILY PO Last administered on 06/02/17 09: 54; Admin Dose 10 MG; Start 05/31/17 at 09:00 Aspirin (Halfprin) 81 mg DAILY PO Last administered on 06/02/17 09:54; Admin Dose 81 MG; Start 05/31/17 at 09:00 Carvedilol (Coreg) 12.5 mg BID PO Last administered on 06/02/17 09:54; Admin Dose 12.5 MG; Start 05/31/17 at 09:00 Clopidogrel Bisulfate 75 mg 75 mg DAILY PO Last administered on 06/02/17 09:54 ; Admin Dose 75 MG; Start 05/31/17 at 09:00 Magnesium Sulfate (Magnesium Sulfate 4 Gm/100 ml) 100 ml @ 25 mls/hr ONCE ONCE IVPB ; Start 06/02/17 at 13:00; Stop 06/02/17 at 16:59 KATIUSKA RODRIGUEZ MD Jun 02, 2017 13:51
[2017-06-02] MEDS: HEPARIN 1000 UNITS/ML 10 ML INJ IV PRN (16:59)
[2017-06-02] MEDS: HEPARIN 25000 UNITS/250 ML 250 ML IV SCH ×2 (17:02→20:47)
[2017-06-02] MEDS: ACETAMINOPHEN 325 MG TAB PO PRN (18:52)
[2017-06-03] VITALS (11 sets, daily range): BP systolic 123–155; BP diastolic 59–67; PULSE 63–80; RESP 16–20
[2017-06-03] MEDS: INSULIN ASPART [NOVOLOG] 3 ML PEN SC SCH ×6 (00:51→21:48)
[2017-06-03] MEDS: HEPARIN 25000 UNITS/250 ML 250 ML IV SCH ×2 (00:53→16:58)
[2017-06-03] MEDS: PANTOPRAZOLE 40 MG INJ IV SCH (06:47)
[2017-06-03 07:39] LABS: BASOPHILS % 0.1 % (0.0-2.0); EOSINOPHILS # 0.1 10^3/ul (0.0-0.5); EOSINOPHILS % 1.7 % (0.0-7.0); HEMATOCRIT 29.8 % (37.0-47.0); HEMOGLOBIN 9.7 g/dl (12.0-16.0); LYMPHOCYTES # 2.1 10^3/ul (0.8-2.9); LYMPHOCYTES % 28.5 % (15.0-51.0); MEAN CORPUSCULAR HEMOGLOBIN 28.2 pg (29.0-33.0); MEAN CORPUSCULAR HGB CONC 32.6 g/dl (32.0-37.0); MEAN CORPUSCULAR VOLUME 86.6 fl (82.0-101.0); MONOCYTE # 0.4 10^3/ul (0.3-0.9); MONOCYTES % 5.9 % (0.0-11.0); NEUTROPHIL # 4.7 10^3/ul (1.6-7.5); NEUTROPHILS % 63.5 % (39.0-77.0); PLATELET COUNT 203 10^3/UL (140-415); RED BLOOD COUNT 3.44 10^6/ul (4.20-5.40); RED CELL DISTRIBUTION WIDTH 13.5 % (11.5-14.5); WHITE BLOOD COUNT 7.4 10^3/ul (4.8-10.8)
[2017-06-03 07:58] LABS: ALBUMIN 3.1 g/dl (3.3-4.9); CREATININE 2.01 mg/dl (0.44-1.00); MAGNESIUM 2.4 mg/dl (1.7-2.5); POTASSIUM 4.4 mmol/L (3.5-5.1)
[2017-06-03] MEDS: AMLODIPINE 10 MG TAB PO SCH (09:44)
[2017-06-03] MEDS: ASPIRIN (EC) 81 MG TAB PO SCH (09:44)
[2017-06-03] MEDS: CLOPIDOGREL 75 MG TAB PO SCH (09:44)
--- NOTE | 2017-06-03 13:07 | CONS ---
Date/Time of Note Date/Time of Note DATE: 06/03/17 TIME: 13:06 Assessment/Plan Assessment/Plan Chief Complaint/Hosp Course NSTEMI: Trop up to 2.3 and consistent with chest pain and diffuse EKG changes. Concern for significant CAD based on EKG findings vs significant demand ischemia in setting of SBP 230 on admission. Pt is agreeable to cardiac cath. Delayed due to renal dysfunction. Acute renal failure: Had two contrast studies so likely MILA especially in the setting of volume depletion from vomiting. Cr improving Abdominal pain: possible mesenteric ischemia in setting of CT e/o celiac and REVA disease as well as lactic acidosis. 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 No complaints. Cr improving Exam/Review of Systems Vital Signs Vitals Vital Signs Date Time Temp Pulse Resp B/P Pulse Ox O2 Delivery O2 Flow Rate FiO2 06/03/17 12:10 69 06/03/17 12:10 97.9 18 154/ 96 06/02/17 20:00 Nasal Cannula 2.0 Intake and Output 06/02/17 06/02/17 06/03/17 15:00 23:00 07:00 Intake Total 25 ml 600 ml 700 ml Output Total 600 ml Balance 25 ml 600 ml 100 ml Exam Constitutional: alert, oriented Psych: nl mood/affect, no complaints Head: atraumatic, normocephalic Neck: No jvd Respiratory: clear to auscultation, No crackles/rales Cardiovascular: regular rate and rhythm, No edema Gastrointestinal: non-tender, soft Neurological: nl mental status, nl speech Results Result Diagram: 06/03/17 0716 06/03/17 0716 Results 24 hrs Laboratory Tests Test 06/02/17 15:17 06/02/17 17:14 06/02/17 20:39 06/02/17 23:47 Activated Partial Thromboplast Time 45.3 H 93.5 *H Bedside Glucose 310 H 259 H Test 06/03/17 00:47 06/03/17 06:43 06/03/17 07:16 06/03/17 08:34 Bedside Glucose 234 H 206 175 White Blood Count 7.4 Red Blood Count 3.44 L Hemoglobin 9.7 L Hematocrit 29.8 L Mean Corpuscular Volume 86.6 Mean Corpuscular Hemoglobin 28.2 L Mean Corpuscular Hemoglobin Concent 32.6 Red Cell Distribution Width 13.5 Platelet Count 203 Mean Platelet Volume 10.0 Neutrophils % 63.5 Lymphocytes % 28.5 Monocytes % 5.9 Eosinophils % 1.7 Basophils % 0.1 Nucleated Red Blood Cells % 0.0 Neutrophils # 4.7 Lymphocytes # 2.1 Monocytes # 0.4 Eosinophils # 0.1 Basophils # 0.0 Nucleated Red Blood Cells # 0.0 Activated Partial Thromboplast Time 59.4 H Sodium Level 140 Potassium Level 4.4 Chloride Level 111 H Carbon Dioxide Level 25 Anion Gap 8 Blood Urea Nitrogen 30 H Creatinine 2.01 H Glucose Level 180 Calcium Level 9.0 Phosphorus Level 4.0 Magnesium Level 2.4 Albumin 3.1 L Test 06/03/17 12:51 Bedside Glucose 278 H Medications Medications Current Medications Morphine Sulfate (morphine) 2 mg Q4H PRN IV MODERATE PAIN LEVEL 4-6; Start 05/31/17 at 01:30 Acetaminophen (Tylenol Tab) 650 mg Q6H PRN PO PAIN LEVEL 1-3 OR FEVER Last administered on 06/02/17 18:52; Admin Dose 650 MG; Start 05/31/17 at 02:00 Pantoprazole (Protonix Iv) 40 mg DAILY@06 IV Last administered on 06/03/17 06: 47; Admin Dose 40 MG; Start 05/31/17 at 06:00 Ondansetron HCl (Zofran Inj) 4 mg Q4H PRN IV NAUSEA AND/OR VOMITING Last administered on 05/31/17 02:30; Admin Dose 4 MG; Start 05/31/17 at 02:30 Insulin Aspart (Novolog Insulin Pen) NOVOLOG *MILD* ALGORI... Q4 SC Last administered on 06/03/17 12:58; Admin Dose 4 UNIT; Start 05/31/17 at 09:00 Miscellaneous Information 1 ea NOTE XX ; Start 05/31/17 at 06:15 Glucose (Glutose) 15 gm Q15M PRN PO DECREASED GLUCOSE; Start 05/31/17 at 06:15 Glucose (Glutose) 22.5 gm Q15M PRN PO DECREASED GLUCOSE; Start 05/31/17 at 06: 15 Dextrose (D50w Syringe) 25 ml Q15M PRN IV DECREASED GLUCOSE; Start 05/31/17 at 06:15 Dextrose (D50w Syringe) 50 ml Q15M PRN IV DECREASED GLUCOSE; Start 05/31/17 at 06:15 Glucagon (Glucagen) 1 mg Q15M PRN IM DECREASED GLUCOSE; Start 05/31/17 at 06:15 Glucose (Glutose) 15 gm Q15M PRN BUCCAL DECREASED GLUCOSE; Start 05/31/17 at 06 :15 Amlodipine Besylate (Norvasc) 10 mg DAILY PO Last administered on 06/03/17 09: 44; Admin Dose 10 MG; Start 05/31/17 at 09:00 Aspirin (Halfprin) 81 mg DAILY PO Last administered on 06/03/17 09:44; Admin Dose 81 MG; Start 05/31/17 at 09:00 Carvedilol (Coreg) 12.5 mg BID PO Last administered on 06/03/17 09:44; Admin Dose 12.5 MG; Start 05/31/17 at 09:00 Clopidogrel Bisulfate (plaVIX) 75 mg DAILY PO Last administered on 06/03/17 09 :44; Admin Dose 75 MG; Start 05/31/17 at 09:00 COLEMAN GARCIA Jun 03, 2017 13:07
--- NOTE | 2017-06-03 17:19 | PN ---
Date/Time of Note Date/Time of Note DATE: 06/03/17 TIME: 17:12 Assessment/Plan VTE Prophylaxis VTE Prophylaxis Intervention: heparin Lines/Catheters IV Catheter Type (from Nrsg): Saline Lock Assessment/Plan Assessment/Plan 1. NSTEMI - Cardiology on board and recommendations appreciated. in setting of ANITA due to multiple imaging studies, will hold off on Cath until improvement of renal function. Scheduled for Sunday, sunday - Patient continued on heparin drip and no further episodes of chest pain - ECHO showed EF 55%, with impaired relaxation with stage I diastolic dysfunction - Continue home medications 2. Narrowing Celiac, REVA and SMA - Patient not experiencing any abdominal discomfort - Dr. Ricketts on board and will work up once NSTEMI resolves 3. Diabetes Mellitus - Will add Lantus 7units and adjust as needed - Patients Daughter does not want a community educator consultation due to bad experience in the past - A1c 8.0 - Will hold Metformin - ISS and accuchecks 4. ANITA secondary to contrast - Improving - Keeping hydrated via PO 5. Hypertension - Continue patient's home medications - Monitor and adjust as needed 6. H/o CAD - Continue Plavix/aspirin/beta javi 7. Disposition - Plan for cath as soon as recovery of ANITA - Tentatively on schedule for Wednesday 06/06 Subjective 24 Hr Interval Summary Free Text/Dictation Patient doing well and denies any complaints. Per nursing, her sugars have been running high yesterday. Discussed with daughter adjusting her medications and avoiding outside foods unless fresh fruits and vegetables. Exam/Review of Systems Vital Signs Vitals Vital Signs Date Time Temp Pulse Resp B/P Pulse Ox O2 Delivery O2 Flow Rate FiO2 06/03/17 16:09 68 06/03/17 15:59 98.8 18 123/59 98 06/02/17 20:00 Nasal Cannula 2.0 Intake and Output 06/02/17 06/02/17 06/03/17 15:00 23:00 07:00 Intake Total 25 ml 600 ml 700 ml Output Total 600 ml Balance 25 ml 600 ml 100 ml Exam General: Pleasant, lying comfortably in bed in NAD Neck: Supple with full range of motion. Lungs: Clear to auscultation bilaterally no crackles rales or wheezing Heart: Normal S1-S2, Regular rhythm and rate. No murmur, S3, or S4 Abdomen: Soft, mild tenderness to palpation at the epigastric region, non distended no guarding or rebound Extremities: Normal to inspection, no edema no cyanosis Neurologic: Normal mental status, speech normal, cranial nerves II through XII are intact, motor and sensory are intact, no focal weakness Results Result Diagram: 06/03/17 0716 06/03/17 0716 Results 24 hrs Laboratory Tests Test 06/02/17 17:14 06/02/17 20:39 06/02/17 23:47 06/03/17 00:47 Bedside Glucose 310 H 259 H 234 H Activated Partial Thromboplast Time 93.5 *H Test 06/03/17 06:43 06/03/17 07:16 06/03/17 08:34 06/03/17 12:51 Bedside Glucose 206 175 278 H White Blood Count 7.4 Red Blood Count 3.44 L Hemoglobin 9.7 L Hematocrit 29.8 L Mean Corpuscular Volume 86.6 Mean Corpuscular Hemoglobin 28.2 L Mean Corpuscular Hemoglobin Concent 32.6 Red Cell Distribution Width 13.5 Platelet Count 203 Mean Platelet Volume 10.0 Neutrophils % 63.5 Lymphocytes % 28.5 Monocytes % 5.9 Eosinophils % 1.7 Basophils % 0.1 Nucleated Red Blood Cells % 0.0 Neutrophils # 4.7 Lymphocytes # 2.1 Monocytes # 0.4 Eosinophils # 0.1 Basophils # 0.0 Nucleated Red Blood Cells # 0.0 Activated Partial Thromboplast Time 59.4 H Sodium Level 140 Potassium Level 4.4 Chloride Level 111 H Carbon Dioxide Level 25 Anion Gap 8 Blood Urea Nitrogen 30 H Creatinine 2.01 H Glucose Level 180 Calcium Level 9.0 Phosphorus Level 4.0 Magnesium Level 2.4 Albumin 3.1 L Test 06/03/17 15:48 Activated Partial Thromboplast Time 46.9 H Medications Medications Current Medications Morphine Sulfate (morphine) 2 mg Q4H PRN IV MODERATE PAIN LEVEL 4-6; Start 05/31/17 at 01:30 Acetaminophen (Tylenol Tab) 650 mg Q6H PRN PO PAIN LEVEL 1-3 OR FEVER Last administered on 06/02/17 18:52; Admin Dose 650 MG; Start 05/31/17 at 02:00 Ondansetron HCl (Zofran Inj) 4 mg Q4H PRN IV NAUSEA AND/OR VOMITING Last administered on 05/31/17 02:30; Admin Dose 4 MG; Start 05/31/17 at 02:30 Insulin Aspart (Novolog Insulin Pen) NOVOLOG *MILD* ALGORI... Q4 SC Last administered on 06/03/17 12:58; Admin Dose 4 UNIT; Start 05/31/17 at 09:00 Miscellaneous Information 1 ea NOTE XX ; Start 05/31/17 at 06:15 Glucose (Glutose) 15 gm Q15M PRN PO DECREASED GLUCOSE; Start 05/31/17 at 06:15 Glucose (Glutose) 22.5 gm Q15M PRN PO DECREASED GLUCOSE; Start 05/31/17 at 06: 15 Dextrose (D50w Syringe) 25 ml Q15M PRN IV DECREASED GLUCOSE; Start 05/31/17 at 06:15 Dextrose (D50w Syringe) 50 ml Q15M PRN IV DECREASED GLUCOSE; Start 05/31/17 at 06:15 Glucagon (Glucagen) 1 mg Q15M PRN IM DECREASED GLUCOSE; Start 05/31/17 at 06:15 Glucose (Glutose) 15 gm Q15M PRN BUCCAL DECREASED GLUCOSE; Start 05/31/17 at 06 :15 Amlodipine Besylate (Norvasc) 10 mg DAILY PO Last administered on 06/03/17 09: 44; Admin Dose 10 MG; Start 05/31/17 at 09:00 Aspirin (Halfprin) 81 mg DAILY PO Last administered on 06/03/17 09:44; Admin Dose 81 MG; Start 05/31/17 at 09:00 Carvedilol (Coreg) 12.5 mg BID PO Last administered on 06/03/17 09:44; Admin Dose 12.5 MG; Start 05/31/17 at 09:00 Clopidogrel Bisulfate (plaVIX) 75 mg DAILY PO Last administered on 06/03/17 09 :44; Admin Dose 75 MG; Start 05/31/17 at 09:00 Pantoprazole (Protonix Tab) 40 mg DAILY@06 PO ; Start 06/04/17 at 06:00 KATIUSKA RODRIGUEZ MD Jun 03, 2017 17:19
[2017-06-03] MEDS: INSULIN GLARGINE [LANtus] 3 ML PEN SC SCH (21:49)
[2017-06-04] VITALS (12 sets, daily range): BP systolic 105–147; BP diastolic 56–67; PULSE 71–75; RESP 18–20
[2017-06-04] MEDS: HEPARIN 25000 UNITS/250 ML 250 ML IV SCH ×4 (00:48→21:24)
[2017-06-04] MEDS: INSULIN ASPART [NOVOLOG] 3 ML PEN SC SCH ×6 (01:00→20:43)
[2017-06-04] MEDS: PANTOPRAZOLE (EC) 40 MG TAB PO SCH (06:10)
[2017-06-04] MEDS: CLOPIDOGREL 75 MG TAB PO SCH (08:41)
[2017-06-04] MEDS: ASPIRIN (EC) 81 MG TAB PO SCH (08:42)
[2017-06-04] MEDS: AMLODIPINE 10 MG TAB PO SCH (08:42)
--- NOTE | 2017-06-04 10:34 | CONS ---
Date/Time of Note Date/Time of Note DATE: 06/04/17 TIME: 10:33 Assessment/Plan Assessment/Plan Chief Complaint/Hosp Course NSTEMI: Trop up to 2.3 and consistent with chest pain and diffuse EKG changes. Concern for significant CAD based on EKG findings vs significant demand ischemia in setting of SBP 230 on admission. Pt is agreeable to cardiac cath. Delayed due to renal dysfunction. Acute renal failure: Had two contrast studies so likely MILA especially in the setting of volume depletion from vomiting. Cr improving Abdominal pain: possible mesenteric ischemia in setting of CT e/o celiac and REVA disease as well as lactic acidosis. 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 Has bilateral ear pain. No labs this am. Exam/Review of Systems Vital Signs Vitals Vital Signs Date Time Temp Pulse Resp B/P Pulse Ox O2 Delivery O2 Flow Rate FiO2 06/04/17 08:20 Nasal Cannula 2.0 06/04/17 08:10 71 06/04/17 03:45 99.5 18 130/60 97 Intake and Output 06/03/17 06/03/17 06/04/17 15:00 23:00 07:00 Intake Total 1290 ml 1000 ml Output Total 700 ml Balance 1290 ml 300 ml Exam Constitutional: alert, oriented Psych: no complaints Head: atraumatic, normocephalic Neck: No jvd Respiratory: clear to auscultation, No crackles/rales Cardiovascular: regular rate and rhythm, No edema, No systolic murmur Gastrointestinal: non-tender, soft Neurological: nl mental status, nl speech Results Result Diagram: 06/03/17 0716 06/03/1716 Results 24 hrs Laboratory Tests Test 06/03/17 12:51 06/03/17 15:48 06/03/17 17:13 06/03/17 21:44 Bedside Glucose 278 H 280 H 331 H Activated Partial Thromboplast Time 46.9 H Test 06/03/17 23:11 06/04/17 00:40 06/04/17 06:09 06/04/17 07:04 Activated Partial Thromboplast Time 57.6 H 39.6 H Bedside Glucose 281 H 197 Test 06/04/17 08:02 Bedside Glucose 191 Medications Medications Current Medications Morphine Sulfate (morphine) 2 mg Q4H PRN IV MODERATE PAIN LEVEL 4-6; Start 05/31/17 at 01:30 Acetaminophen (Tylenol Tab) 650 mg Q6H PRN PO PAIN LEVEL 1-3 OR FEVER Last administered on 06/02/17 18:52; Admin Dose 650 MG; Start 05/31/17 at 02:00 Ondansetron HCl (Zofran Inj) 4 mg Q4H PRN IV NAUSEA AND/OR VOMITING Last administered on 05/31/17 02:30; Admin Dose 4 MG; Start 05/31/17 at 02:30 Insulin Aspart (Novolog Insulin Pen) NOVOLOG *MILD* ALGORI... Q4 SC Last administered on 06/04/17 08:40; Admin Dose 2 UNIT; Start 05/31/17 at 09:00 Miscellaneous Information 1 ea NOTE XX ; Start 05/31/17 at 06:15 Glucose (Glutose) 15 gm Q15M PRN PO DECREASED GLUCOSE; Start 05/31/17 at 06:15 Glucose (Glutose) 22.5 gm Q15M PRN PO DECREASED GLUCOSE; Start 05/31/17 at 06: 15 Dextrose (D50w Syringe) 25 ml Q15M PRN IV DECREASED GLUCOSE; Start 05/31/17 at 06:15 Dextrose (D50w Syringe) 50 ml Q15M PRN IV DECREASED GLUCOSE; Start 05/31/17 at 06:15 Glucagon (Glucagen) 1 mg Q15M PRN IM DECREASED GLUCOSE; Start 05/31/17 at 06:15 Glucose (Glutose) 15 gm Q15M PRN BUCCAL DECREASED GLUCOSE; Start 05/31/17 at 06 :15 Amlodipine Besylate (Norvasc) 10 mg DAILY PO Last administered on 06/04/17 08: 42; Admin Dose 10 MG; Start 05/31/17 at 09:00 Aspirin (Halfprin) 81 mg DAILY PO Last administered on 06/04/17 08:42; Admin Dose 81 MG; Start 05/31/17 at 09:00 Carvedilol (Coreg) 12.5 mg BID PO Last administered on 06/04/17 08:42; Admin Dose 12.5 MG; Start 05/31/17 at 09:00 Clopidogrel Bisulfate (plaVIX) 75 mg DAILY PO Last administered on 06/04/17 08 :41; Admin Dose 75 MG; Start 05/31/17 at 09:00 Pantoprazole (Protonix Tab) 40 mg DAILY@06 PO Last administered on 06/04/17 06 :10; Admin Dose 40 MG; Start 06/04/17 at 06:00 Insulin Glargine (Lantus) 7 unit QHS SC Last administered on 06/03/17 21:49; Admin Dose 7 UNIT; Start 06/03/17 at 21:00 COLEMAN GARCIA Jun 04, 2017 10:34
[2017-06-04] MEDS: HEPARIN 1000 UNITS/ML 10 ML INJ IV PRN (10:38)
--- NOTE | 2017-06-04 11:51 | PN ---
Progress Notes for 06/01/17 dictated Dictated By: MD MIKALA Mendez/rocío/thi /Document#: [id number] MTDD
--- NOTE | 2017-06-04 12:11 | PN ---
DATE: 06/01/2017 SUBJECTIVE DATA: The patient is resting comfortably with daughter at bedside. Patient complaining of mild epigastric discomfort, but denies any worsening chest pain, shortness of breath, dizziness, headache, nausea, vomiting or patrizia bleeding. Area of previous IV infiltrate is still swollen, but no erythema, ecchymosis or drainage appreciated from site. OBJECTIVE DATA: VITAL SIGNS: Temperature 98.1, blood pressure 104/50, pulse 80, respirations 18, pulse oximetry 96 percent on 2 L NC. GENERAL: Patient in no acute distress, lying comfortably in bed. Awake and alert. NECK: Supple with full range of motion. LUNGS: Clear to auscultation bilaterally. No crackles, rales or wheezing. HEART: S1, S2, regular rate and rhythm. No murmurs or extra sounds. ABDOMEN: Soft, mild tenderness to palpation of the epigastric area. No distention, guarding or rebound. Positive bowel sounds in all quadrants. EXTREMITIES: Normal to inspection. No edema, cyanosis or clubbing. NEUROLOGIC: Normal mental status. Normal speech. Cranial nerves II-XII are intact. No focal deficits appreciated. LABORATORY AND DIAGNOSTIC DATA: White blood cells 11.4, hemoglobin 9.5, hematocrit 29.3, platelets 232, sodium 140, potassium 4, chloride 108, bicarb 26, BUN 38, creatinine 2.39, glucose 116. ASSESSMENT AND PLAN: 1. [id number] myocardial infarction. - Cardiology on board and recommendations appreciated. Plans for cardiac cath once improvement of renal function. First available opening is Sunday. Creatinine is 2.39 today, but anticipate resolution - Continue on heparin drip and no further episodes of chest pain. No patrizia bleeding appreciated. - Echo shows ejection fraction of 55% with impaired relaxation with stage1 diastolic dysfunction. Continue current medications. 2. Narrowing celiac, REVA and SMA. - Patient not experiencing any abdominal discomfort. - Will continue on heparin drip and consider consulting vascular surgery for further recommendations. 3. Diabetes mellitus, moderately controlled. - A1c is 8.0. - Will hold off on metformin. - Continue insulin sliding scale and Accu-Cheks. - Will continue monitoring.and adjust as needed - Family requesting to not have consumer educator consultation placed 4. Hypertension. - Continue patient's home medications. - Currently stable and will monitor and adjust medications as needed. 5. History of coronary artery disease. - Continue Plavix, aspirin and beta javi. 6. Hypomagnesia. - 1.7, replaced. DISPOSITION: Patient will remain on Telemetry and plan for cath once ANITA resolves. Dictated By: MD MIKALA Mendez/rocío/thi /Document#: [id number] [facility]
[2017-06-04 12:22] LABS: CALCIUM 8.7 mg/dl (8.4-10.2); CREATININE 1.49 mg/dl (0.44-1.00); POTASSIUM 4.9 mmol/L (3.5-5.1)
[2017-06-04] MEDS: ISOSORBIDE MONONITRATE(SR)30 MG TAB PO SCH (12:47)
[2017-06-04] MEDS ORDERED: predniSONE 20 MG TAB PO ONE (18:00)
--- NOTE | 2017-06-04 19:58 | PN ---
Date/Time of Note Date/Time of Note DATE: 06/04/17 TIME: 19:55 Assessment/Plan VTE Prophylaxis VTE Prophylaxis Intervention: heparin, SCD's Lines/Catheters IV Catheter Type (from Nrsg): Saline Lock Assessment/Plan Chief Complaint/Hosp Course 1. NSTEMI - Cardiology on board and recommendations appreciated. in setting of ANITA due to multiple imaging studies, will hold off on Cath until improvement of renal function. Scheduled for Sunday, sunday - Patient continued on heparin drip and no further episodes of chest pain - ECHO showed EF 55%, with impaired relaxation with stage I diastolic dysfunction - Continue home medications #jaw pain/shoulder pain/temporal pain -? GCA -no visual deficit -stat ESR/CRP -gave one time prednisone while waiting for ESR/CRP -likely musculoskeletal given daughter's story, but will be cautious. 2. Narrowing Celiac, REVA and SMA - Patient not experiencing any abdominal discomfort - Dr. Ricketts on board and will work up once NSTEMI resolves 3. Diabetes Mellitus - Will add Lantus 7units and adjust as needed - Patients Daughter does not want a cosmetology educator consultation due to bad experience in the past - A1c 8.0 - Will hold Metformin - ISS and accuchecks 4. ANITA secondary to contrast - Improving - Keeping hydrated via PO 5. Hypertension - Continue patient's home medications - Monitor and adjust as needed 6. H/o CAD - Continue Plavix/aspirin/beta javi 7. Disposition - Plan for cath as soon as recovery of ANITA - Tentatively on schedule for Wednesday 06/06 Problems: Subjective 24 Hr Interval Summary Free Text/Dictation complains of jaw, shoulder, temporal pain. new onset since CA Exam/Review of Systems Vital Signs Vitals Vital Signs Date Time Temp Pulse Resp B/P Pulse Ox O2 Delivery O2 Flow Rate FiO2 06/04/17 19:47 99.8 75 18 119/59 95 06/04/17 08:20 Nasal Cannula 2.0 Intake and Output 06/03/17 06/03/17 06/04/17 15:00 23:00 07:00 Intake Total 1290 ml 1000 ml Output Total 700 ml Balance 1290 ml 300 ml Exam General: Pleasant, lying comfortably in bed in NAD Neck: Supple with full range of motion. head: temporal bilateral pain, jaw tenderness. Lungs: Clear to auscultation bilaterally no crackles rales or wheezing Heart: Normal S1-S2, Regular rhythm and rate. No murmur, S3, or S4 Abdomen: Soft, mild tenderness to palpation at the epigastric region, non distended no guarding or rebound Extremities: Normal to inspection, no edema no cyanosis Neurologic: Normal mental status, speech normal, cranial nerves II through XII are intact, motor and sensory are intact, no focal weakness Results Result Diagram: 06/03/17 0716 06/04/17 1137 Results 24 hrs Laboratory Tests Test 06/03/17 21:44 06/03/17 23:11 06/04/17 00:40 06/04/17 06:09 Bedside Glucose 331 H 281 H 197 Activated Partial Thromboplast Time 57.6 H Test 06/04/17 07:04 06/04/17 08:02 06/04/17 11:37 06/04/17 12:14 Activated Partial Thromboplast Time 39.6 H Bedside Glucose 191 244 H Sodium Level 138 Potassium Level 4.9 Chloride Level 108 Carbon Dioxide Level 25 Anion Gap 10 Blood Urea Nitrogen 22 H Creatinine 1.49 H Glucose Level 234 H Calcium Level 8.7 Test 06/04/17 17:13 06/04/17 17:30 Activated Partial Thromboplast Time > 180.0 *H Bedside Glucose 297 H Medications Medications Current Medications Morphine Sulfate (morphine) 2 mg Q4H PRN IV MODERATE PAIN LEVEL 4-6; Start 05/31/17 at 01:30 Acetaminophen (Tylenol Tab) 650 mg Q6H PRN PO PAIN LEVEL 1-3 OR FEVER Last administered on 06/02/17 18:52; Admin Dose 650 MG; Start 05/31/17 at 02:00 Ondansetron HCl (Zofran Inj) 4 mg Q4H PRN IV NAUSEA AND/OR VOMITING Last administered on 05/31/17 02:30; Admin Dose 4 MG; Start 05/31/17 at 02:30 Miscellaneous Information 1 ea NOTE XX ; Start 05/31/17 at 06:15 Glucose (Glutose) 15 gm Q15M PRN PO DECREASED GLUCOSE; Start 05/31/17 at 06:15 Glucose (Glutose) 22.5 gm Q15M PRN PO DECREASED GLUCOSE; Start 05/31/17 at 06: 15 Dextrose (D50w Syringe) 25 ml Q15M PRN IV DECREASED GLUCOSE; Start 05/31/17 at 06:15 Dextrose (D50w Syringe) 50 ml Q15M PRN IV DECREASED GLUCOSE; Start 05/31/17 at 06:15 Glucagon (Glucagen) 1 mg Q15M PRN IM DECREASED GLUCOSE; Start 05/31/17 at 06:15 Glucose (Glutose) 15 gm Q15M PRN BUCCAL DECREASED GLUCOSE; Start 05/31/17 at 06 :15 Amlodipine Besylate (Norvasc) 10 mg DAILY PO Last administered on 06/04/17 08: 42; Admin Dose 10 MG; Start 05/31/17 at 09:00 Aspirin (Halfprin) 81 mg DAILY PO Last administered on 06/04/17 08:42; Admin Dose 81 MG; Start 05/31/17 at 09:00 Carvedilol (Coreg) 12.5 mg BID PO Last administered on 06/04/17 08:42; Admin Dose 12.5 MG; Start 05/31/17 at 09:00 Clopidogrel Bisulfate (plaVIX) 75 mg DAILY PO Last administered on 06/04/17 08 :41; Admin Dose 75 MG; Start 05/31/17 at 09:00 Pantoprazole (Protonix Tab) 40 mg DAILY@06 PO Last administered on 06/04/17 06 :10; Admin Dose 40 MG; Start 06/04/17 at 06:00 Insulin Glargine (Lantus) 7 unit QHS SC Last administered on 06/03/17 21:49; Admin Dose 7 UNIT; Start 06/03/17 at 21:00 Isosorbide Mononitrate (Imdur) 30 mg DAILY PO Last administered on 06/04/17 12 :47; Admin Dose 30 MG; Start 06/04/17 at 11:00 Miscellaneous Information (* Miscellaneous Pharmacy Order) HYPOGLYCEMIA PROTOCOL w... ONCE ONCE XX ; Start 06/04/17 at 20:00; Stop 06/04/17 at 20:01; Status UNV Diagnostic Test (Pha) (Accu-Chek) 1 XX ; Start 06/05/17 at 02:00; Status UNV BECKI HOLLIS Jun 04, 2017 19:58
[2017-06-04] MEDS: ACETAMINOPHEN 325 MG TAB PO PRN (20:33)
[2017-06-04] MEDS: INSULIN GLARGINE [LANtus] 3 ML PEN SC SCH (20:44)
[2017-06-05] VITALS (12 sets, daily range): BP systolic 125–144; BP diastolic 60–65; PULSE 62–75; RESP 18–20
[2017-06-05] MEDS: HEPARIN 25000 UNITS/250 ML 250 ML IV SCH ×4 (01:07→21:23)
[2017-06-05] MEDS: ACCU-CHEK XX SCH (01:07)
[2017-06-05] MEDS ORDERED: INSULIN ASPART [NOVOLOG] 3 ML PEN SC ONE ×2 (01:30→22:00)
[2017-06-05 04:41] LABS: CALCIUM 8.9 mg/dl (8.4-10.2); CREATININE 1.55 mg/dl (0.44-1.00); POTASSIUM 4.7 mmol/L (3.5-5.1)
--- NOTE | 2017-06-05 06:51 | CONS ---
Date/Time of Note Date/Time of Note DATE: 06/05/17 TIME: 06:48 Assessment/Plan Assessment/Plan Chief Complaint/Hosp Course NSTEMI: Trop up to 2.3 and consistent with chest pain and diffuse EKG changes. Concern for significant CAD based on EKG findings vs significant demand ischemia in setting of SBP 230 on admission. Pt is agreeable to cardiac cath. Delayed due to renal dysfunction. Acute renal failure: Had two contrast studies so likely MILA especially in the setting of volume depletion from vomiting. Cr improving but still 1.5 today Abdominal pain: possible mesenteric ischemia in setting of CT e/o celiac and REVA disease as well as lactic acidosis. Now resolved H/o CAD s/p PCI x 3 Celiac/REVA stenosis DM HTN -ideally Cr shuold continue to improve prior to cath as baseline is normal. If Cr ~1.2 or less tomorrow will proceed with cath, otherwise may have to delay one more day -Cath scheduled tomorrow ~2:30 pm. Ok to give a very light breakfast in am and all am meds, then NPO -ASA, plavix (home meds) -coreg -continue heparin drip -imdur Problems: Consultation Date/Type/Reason Admit Date/Time May 31, 2017 at 05:25 Initial Consult Date 05/31/17 Type of Consultation: Cardiology Referring Provider: COREY KHAN 24 HR Interval Summary Free Text/Dictation Cr still 1.5. No complaints. Jaw pain better after steroids. No chest pain. Gluc difficult to control after steroids Exam/Review of Systems Vital Signs Vitals Vital Signs Date Time Temp Pulse Resp B/P Pulse Ox O2 Delivery O2 Flow Rate FiO2 06/05/17 04:19 97.8 72 20 126/60 97 06/04/17 08:20 Nasal Cannula 2.0 Intake and Output 06/04/17 06/04/17 06/05/17 15:00 23:00 07:00 Intake Total 1200 ml 310 ml Balance 1200 ml 310 ml Exam Constitutional: alert, oriented Psych: no complaints Head: atraumatic, normocephalic Eyes: nl conjunctiva Neck: No jvd Respiratory: clear to auscultation, No crackles/rales Cardiovascular: regular rate and rhythm, No edema, No systolic murmur Gastrointestinal: non-tender, soft Neurological: nl mental status, nl speech Results Result Diagram: 06/03/17 0716 06/05/17 0411 Results 24 hrs Laboratory Tests Test 06/04/17 07:04 06/04/17 08:02 06/04/17 11:37 06/04/17 12:14 Activated Partial Thromboplast Time 39.6 H Bedside Glucose 191 244 H Sodium Level 138 Potassium Level 4.9 Chloride Level 108 Carbon Dioxide Level 25 Anion Gap 10 Blood Urea Nitrogen 22 H Creatinine 1.49 H Glucose Level 234 H Calcium Level 8.7 Test 06/04/17 17:13 06/04/17 17:30 06/04/17 18:40 06/04/17 20:05 Activated Partial Thromboplast Time > 180.0 *H 54.7 H Bedside Glucose 297 H Erythrocyte Sedimentation Rate 80 H C-Reactive Protein 5.6 H Test 06/04/17 20:31 06/05/17 01:03 06/05/17 04:11 Bedside Glucose 281 H 355 H Activated Partial Thromboplast Time 109.1 *H Sodium Level 139 Potassium Level 4.7 Chloride Level 106 Carbon Dioxide Level 25 Anion Gap 13 Blood Urea Nitrogen 24 H Creatinine 1.55 H Glucose Level 305 H Calcium Level 8.9 Medications Medications Current Medications Morphine Sulfate (morphine) 2 mg Q4H PRN IV MODERATE PAIN LEVEL 4-6; Start 05/31/17 at 01:30 Acetaminophen (Tylenol Tab) 650 mg Q6H PRN PO PAIN LEVEL 1-3 OR FEVER Last administered on 06/04/17 20:33; Admin Dose 650 MG; Start 05/31/17 at 02:00 Ondansetron HCl (Zofran Inj) 4 mg Q4H PRN IV NAUSEA AND/OR VOMITING Last administered on 05/31/17 02:30; Admin Dose 4 MG; Start 05/31/17 at 02:30 Miscellaneous Information 1 ea NOTE XX ; Start 05/31/17 at 06:15 Glucose (Glutose) 15 gm Q15M PRN PO DECREASED GLUCOSE; Start 05/31/17 at 06:15 Glucose (Glutose) 22.5 gm Q15M PRN PO DECREASED GLUCOSE; Start 05/31/17 at 06: 15 Dextrose (D50w Syringe) 25 ml Q15M PRN IV DECREASED GLUCOSE; Start 05/31/17 at 06:15 Dextrose (D50w Syringe) 50 ml Q15M PRN IV DECREASED GLUCOSE; Start 05/31/17 at 06:15 Glucagon (Glucagen) 1 mg Q15M PRN IM DECREASED GLUCOSE; Start 05/31/17 at 06:15 Glucose (Glutose) 15 gm Q15M PRN BUCCAL DECREASED GLUCOSE; Start 05/31/17 at 06 :15 Amlodipine Besylate (Norvasc) 10 mg DAILY PO Last administered on 06/04/17 08: 42; Admin Dose 10 MG; Start 05/31/17 at 09:00 Aspirin (Halfprin) 81 mg DAILY PO Last administered on 06/04/17 08:42; Admin Dose 81 MG; Start 05/31/17 at 09:00 Carvedilol (Coreg) 12.5 mg BID PO Last administered on 06/04/17 20:34; Admin Dose 12.5 MG; Start 05/31/17 at 09:00 Clopidogrel Bisulfate (plaVIX) 75 mg DAILY PO Last administered on 06/04/17 08 :41; Admin Dose 75 MG; Start 05/31/17 at 09:00 Pantoprazole (Protonix Tab) 40 mg DAILY@06 PO Last administered on 06/04/17 06 :10; Admin Dose 40 MG; Start 06/04/17 at 06:00 Insulin Glargine (Lantus) 7 unit QHS SC Last administered on 06/04/17 20:44; Admin Dose 7 UNIT; Start 06/03/17 at 21:00 Isosorbide Mononitrate (Imdur) 30 mg DAILY PO Last administered on 06/04/17 12 :47; Admin Dose 30 MG; Start 06/04/17 at 11:00 Diagnostic Test (Pha) (Accu-Chek) 1 ea 02 XX Last administered on 06/05/17 01 :07; Admin Dose 1 EA; Start 06/05/17 at 02:00 Insulin Glargine (Lantus) 13 unit DAILY@20 SC ; Start 06/05/17 at 20:00 COLEMAN GARCIA Jun 05, 2017 06:51
[2017-06-05] MEDS: PANTOPRAZOLE (EC) 40 MG TAB PO SCH (06:55)
[2017-06-05] MEDS: CLOPIDOGREL 75 MG TAB PO SCH (08:19)
[2017-06-05] MEDS: ISOSORBIDE MONONITRATE(SR)30 MG TAB PO SCH (08:19)
[2017-06-05] MEDS: ASPIRIN (EC) 81 MG TAB PO SCH (08:20)
[2017-06-05] MEDS: AMLODIPINE 10 MG TAB PO SCH (08:20)
[2017-06-05] MEDS: INSULIN ASPART [NOVOLOG] 3 ML PEN SC SCH ×6 (08:29→21:15)
[2017-06-05] MEDS ORDERED: VITAMIN A & D 5 GM OINT PACKET TOP ONE (09:27)
[2017-06-05] MEDS: predniSONE 20 MG TAB PO SCH (13:33)
[2017-06-05] MEDS: SOD CHLORIDE 0.9% 1,000 ML IV SCH (13:33)
--- NOTE | 2017-06-05 16:08 | PN ---
Date/Time of Note Date/Time of Note DATE: 06/05/17 TIME: 15:59 Assessment/Plan VTE Prophylaxis VTE Prophylaxis Intervention: heparin Lines/Catheters IV Catheter Type (from Nrsg): Saline Lock Assessment/Plan Chief Complaint/Hosp Course 1. NSTEMI - Cardiology on board and recommendations appreciated. in setting of ANITA due to multiple imaging studies, will hold off on Cath until improvement of renal function. Scheduled for Sunday, sunday - Patient continued on heparin drip and no further episodes of chest pain - ECHO showed EF 55%, with impaired relaxation with stage I diastolic dysfunction - Continue home medications #jaw pain/shoulder pain/temporal pain -? GCA -no visual deficit -elevated ESR -continue daily 60mg prednisone for now -vascular surgery consulted for possible temporal artery biopsy. 2. Narrowing Celiac, REVA and SMA - Patient not experiencing any abdominal discomfort, likely outpatient follow up 3. Diabetes Mellitus - Lantus and adjust as needed - Patients Daughter does not want a hematology nurse educator consultation due to bad experience in the past - A1c 8.0 - Will hold Metformin - ISS and accuchecks 4. ANITA secondary to contrast - Improving - Keeping hydrated via PO 5. Hypertension - Continue patient's home medications - Monitor and adjust as needed 6. H/o CAD - Continue Plavix/aspirin/beta javi 7. Disposition - Plan for cath tomorrow - Tentatively on schedule for Wednesday 06/06 -likely outpatient temporal artery biopsy Problems: Subjective 24 Hr Interval Summary Free Text/Dictation no acute complaints Exam/Review of Systems Vital Signs Vitals Vital Signs Date Time Temp Pulse Resp B/P Pulse Ox O2 Delivery O2 Flow Rate FiO2 06/05/17 15:32 97.9 64 18 144/61 99 06/04/17 08:20 Nasal Cannula 2.0 Intake and Output 06/04/17 06/04/17 06/05/17 15:00 23:00 07:00 Intake Total 1200 ml 310 ml Balance 1200 ml 310 ml Exam General: Pleasant, lying comfortably in bed in NAD Neck: Supple with full range of motion. head: temporal bilateral pain, jaw tenderness. Lungs: Clear to auscultation bilaterally no crackles rales or wheezing Heart: Normal S1-S2, Regular rhythm and rate. No murmur, S3, or S4 Abdomen: Soft, mild tenderness to palpation at the epigastric region, non distended no guarding or rebound Extremities: Normal to inspection, no edema no cyanosis Neurologic: Normal mental status, speech normal, cranial nerves II through XII are intact, motor and sensory are intact, no focal weakness Results Result Diagram: 06/03/17 0716 06/05/17 0411 Results 24 hrs Laboratory Tests Test 06/04/17 17:13 06/04/17 17:30 06/04/17 18:40 06/04/17 20:05 Activated Partial Thromboplast Time > 180.0 *H 54.7 H Bedside Glucose 297 H Erythrocyte Sedimentation Rate 80 H C-Reactive Protein 5.6 H Test 06/04/17 20:31 06/05/17 01:03 06/05/17 04:11 06/05/17 08:15 Bedside Glucose 281 H 355 H 248 H Activated Partial Thromboplast Time 109.1 *H Sodium Level 139 Potassium Level 4.7 Chloride Level 106 Carbon Dioxide Level 25 Anion Gap 13 Blood Urea Nitrogen 24 H Creatinine 1.55 H Glucose Level 305 H Calcium Level 8.9 Test 06/05/17 12:17 06/05/17 12:23 Activated Partial Thromboplast Time 89.6 *H Bedside Glucose 322 H Medications Medications Current Medications Morphine Sulfate (morphine) 2 mg Q4H PRN IV MODERATE PAIN LEVEL 4-6; Start 05/31/17 at 01:30 Acetaminophen (Tylenol Tab) 650 mg Q6H PRN PO PAIN LEVEL 1-3 OR FEVER Last administered on 06/04/17 20:33; Admin Dose 650 MG; Start 05/31/17 at 02:00 Ondansetron HCl (Zofran Inj) 4 mg Q4H PRN IV NAUSEA AND/OR VOMITING Last administered on 05/31/17 02:30; Admin Dose 4 MG; Start 05/31/17 at 02:30 Miscellaneous Information 1 ea NOTE XX ; Start 05/31/17 at 06:15 Glucose (Glutose) 15 gm Q15M PRN PO DECREASED GLUCOSE; Start 05/31/17 at 06:15 Glucose (Glutose) 22.5 gm Q15M PRN PO DECREASED GLUCOSE; Start 05/31/17 at 06: 15 Dextrose (D50w Syringe) 25 ml Q15M PRN IV DECREASED GLUCOSE; Start 05/31/17 at 06:15 Dextrose (D50w Syringe) 50 ml Q15M PRN IV DECREASED GLUCOSE; Start 05/31/17 at 06:15 Glucagon (Glucagen) 1 mg Q15M PRN IM DECREASED GLUCOSE; Start 05/31/17 at 06:15 Glucose (Glutose) 15 gm Q15M PRN BUCCAL DECREASED GLUCOSE; Start 05/31/17 at 06 :15 Amlodipine Besylate (Norvasc) 10 mg DAILY PO Last administered on 06/05/17 08 :20; Admin Dose 10 MG; Start 05/31/17 at 09:00 Aspirin (Halfprin) 81 mg DAILY PO Last administered on 06/05/17 08:20; Admin Dose 81 MG; Start 05/31/17 at 09:00 Carvedilol (Coreg) 12.5 mg BID PO Last administered on 06/05/17 08:20; Admin Dose 12.5 MG; Start 05/31/17 at 09:00 Clopidogrel Bisulfate (plaVIX) 75 mg DAILY PO Last administered on 06/05/17 08:19; Admin Dose 75 MG; Start 05/31/17 at 09:00 Pantoprazole (Protonix Tab) 40 mg DAILY@06 PO Last administered on 06/05/17 06:55; Admin Dose 40 MG; Start 06/04/17 at 06:00 Isosorbide Mononitrate (Imdur) 30 mg DAILY PO Last administered on 06/05/17 08:19; Admin Dose 30 MG; Start 06/04/17 at 11:00 Diagnostic Test (Pha) (Accu-Chek) 1 ea 02 XX Last administered on 06/05/17 01 :07; Admin Dose 1 EA; Start 06/05/17 at 02:00 Insulin Glargine (Lantus) 13 unit DAILY@20 SC ; Start 06/05/17 at 20:00 Prednisone 60 mg 60 mg DAILY PO Last administered on 06/05/17 13:33; Admin Dose 60 MG; Start 06/05/17 at 13:30 Sodium Chloride (NS) 1,000 ml @ 70 mls/hr [id number] IV Last administered on 13:33; Admin Dose 70 MLS/HR; Start 06/05/17 at 13:30 BECKI HOLLIS Jun 05, 2017 16:08
[2017-06-05] MEDS ORDERED: INSULIN ASPART [NOVOLOG] 3 ML PEN SC SCH (18:05)
[2017-06-05] MEDS: ACETAMINOPHEN 325 MG TAB PO PRN (18:28)
--- NOTE | 2017-06-05 18:42 | RADRPT ---
PROCEDURE: US bilateral lower extremity arteries. CLINICAL INDICATION: Bilateral leg pain. Claudication that interferes significantly with the tyrese ent's lifestyle. TECHNIQUE: Multiple longitudinal and transverse images of the bilateral lower extremity arteries w ere obtained with lindsey scale, pulsed Doppler, and color Doppler imaging. COMPARISON: No prior studies are available for comparison. FINDINGS: Right DOCK PUMPER:140 cm/sec PSFA:155 cm/sec MSFA:148 cm/sec DSFA:102 cm/sec POP:87 cm/sec ANIMAL CHIROPRACTOR:83 cm/sec DPA:39 cm/sec Left DOCK PUMPER:137 cm/sec PSFA:169 cm/sec MSFA:130 cm/sec DSFA:84 cm/sec POP:116 cm/sec ANIMAL CHIROPRACTOR:83 cm/sec DPA:50 cm/sec The right ankle-brachial index is 0.81 and the left ankle-brachial index is 0.92. On the right side, there is normal triphasic flow in the common femoral artery, superficial femoral artery, and popliteal artery. There is abnormal monophasic flow in the calf arteries. On the left side, there is normal triphasic flow in the common femoral artery, superficial femoral a rtery, and popliteal artery. There is abnormal monophasic flow in the calf arteries. IMPRESSION: 1. Abnormal flow bilaterally in the calf arteries consistent with significant stenosis or occlusion . 2. Otherwise unremarkable study. RPTAT: QQ .Kwabena Loya MD, Date Time Electronically viewed and signed by .Kwabena Loya MD, on 06/05/2017 18:41 .R/
[2017-06-05 19:17] LABS: CREATININE 1.25 mg/dl (0.44-1.00)
[2017-06-05] MEDS ORDERED: INSULIN GLARGINE [LANtus] 3 ML PEN SC SCH (20:00)
[2017-06-05] MEDS ORDERED: INSULIN GLARGINE [LANtus] 3 ML PEN SC ONE (22:00)
[2017-06-06] VITALS (18 sets, daily range): BP systolic 114–137; BP diastolic 51–69; PULSE 58–83; RESP 11–18
[2017-06-06] MEDS ORDERED: INSULIN ASPART [NOVOLOG] 3 ML PEN SC ONE (02:30)
[2017-06-06] MEDS: ACCU-CHEK XX SCH (02:30)
[2017-06-06] MEDS: SOD CHLORIDE 0.9% 1,000 ML IV SCH ×3 (03:27→21:50)
[2017-06-06 04:02] LABS: CALCIUM 8.7 mg/dl (8.4-10.2); CREATININE 1.42 mg/dl (0.44-1.00); POTASSIUM 4.9 mmol/L (3.5-5.1)
[2017-06-06 04:04] LABS: BASOPHILS % 0.1 % (0.0-2.0); HEMATOCRIT 26.1 % (37.0-47.0); HEMOGLOBIN 8.4 g/dl (12.0-16.0); LYMPHOCYTES # 1.3 10^3/ul (0.8-2.9); LYMPHOCYTES % 10.5 % (15.0-51.0); MEAN CORPUSCULAR HEMOGLOBIN 27.7 pg (29.0-33.0); MEAN CORPUSCULAR HGB CONC 32.2 g/dl (32.0-37.0); MEAN CORPUSCULAR VOLUME 86.1 fl (82.0-101.0); MEAN PLATELET VOLUME 11.1 fl (7.4-10.4); MONOCYTE # 0.4 10^3/ul (0.3-0.9); MONOCYTES % 2.9 % (0.0-11.0); NEUTROPHIL # 10.7 10^3/ul (1.6-7.5); NEUTROPHILS % 85.5 % (39.0-77.0); PLATELET COUNT 212 10^3/UL (140-415); RED BLOOD COUNT 3.03 10^6/ul (4.20-5.40); RED CELL DISTRIBUTION WIDTH 13.6 % (11.5-14.5); WHITE BLOOD COUNT 12.5 10^3/ul (4.8-10.8)
[2017-06-06 04:11] LABS: MAGNESIUM 2.1 mg/dl (1.7-2.5); PHOSPHORUS 3.7 mg/dl (2.5-4.9)
[2017-06-06] MEDS: HEPARIN 25000 UNITS/250 ML 250 ML IV SCH (04:33)
[2017-06-06] MEDS: PANTOPRAZOLE (EC) 40 MG TAB PO SCH (05:12)
[2017-06-06] MEDS: INSULIN ASPART [NOVOLOG] 3 ML PEN SC SCH ×7 (08:00→21:50)
[2017-06-06] MEDS ORDERED: NPH, HUMAN INSULIN ISOPHANE 3ML VIAL SC SCH (08:00)
--- NOTE | 2017-06-06 08:08 | PN ---
Date/Time of Note Date/Time of Note DATE: 06/06/17 TIME: 08:04 Assessment/Plan Lines/Catheters IV [facility]from [facility] Saline Lock Assessment/Plan Chief Complaint/Hosp Course -Will continue to follow from vascular standpoint -No current intervention needed for temporal artery biopsy as it seems less likely given her current symptoms. Continue workup for coronary evaluation Problems: Subjective 24 Hr Interval Summary no new vascular events overnight Exam/Review of Systems Vital Signs Vitals Vital Signs Date Time Temp Pulse Resp B/P Pulse Ox O2 Delivery O2 Flow Rate FiO2 06/06/17 07:52 98.1 77 18 127/66 92 06/04/17 08:20 Nasal Cannula 2.0 Intake and Output 06/05/17 06/05/17 06/06/17 15:00 23:00 07:00 Intake Total 1800 ml 1000 ml Balance 1800 ml 1000 ml Exam Free Text/Dictation A&Ox3 CTAB S1S2 Present soft NTND BS+, truncal obesity Extremity: Palpable femoral pulses, motor/sensory intact, fait pedal pulses, BS+ CN II-XII intact Results Result Diagram: 06/06/1729906/06/17299 FIDEL LAWRENCE MD Jun 06, 2017 08:07
[2017-06-06] MEDS: ISOSORBIDE MONONITRATE(SR)30 MG TAB PO SCH (08:33)
[2017-06-06] MEDS: ASPIRIN (EC) 81 MG TAB PO SCH (08:33)
[2017-06-06] MEDS: CLOPIDOGREL 75 MG TAB PO SCH (08:33)
[2017-06-06] MEDS: AMLODIPINE 10 MG TAB PO SCH (08:33)
[2017-06-06] MEDS: predniSONE 20 MG TAB PO SCH (08:38)
--- NOTE | 2017-06-06 08:54 | CONS ---
DATE OF ADMISSION: 05/31/2017 DATE OF CONSULTATION: 06/05/2017 TYPE OF CONSULTATION: Vascular surgery history and physical. Dear Doctors: Ms. Wood is an 86-year-old female who presented to [facility] secondary to el evated troponins for what seems to be non-ST elevated VT and is being currently worked up by our car diology colleagues. During that time, patient seems to have significant left upper extremity pain a nd left jaw pain in which she was clenching her mouth and having episodes of vomiting and describing chest pain. During this time patient was evaluated and she had some lactic acidosis in which some suggestion of possible mesenteric ischemia was discussed and the patient has been worked up since at time. During her diagnostic studies, patient underwent CT angiography of the chest, abdomen and pelvis. Upon her evaluation of her chest, no significant findings were identified to suggest aortic dissection or aneurysm. Upon her CT angiography of the abdomen and pelvis, patient did have findin gs of severe visceral aorta atherosclerotic disease and infrarenal aortic atherosclerotic disease, b ut no previous history of mesenteric ischemia has been reported by the patient. She is able to tole rate her diet, solids and liquids without any issues. Although she does have some narrowing and occ lusion of her celiac and her inferior mesenteric artery. She does have some moderate short segment narrowing of her proximal superficial mesenteric artery, but patient has no signs or symptoms of mes enteric ischemia as the patient is overweight and has truncal obesity. Vascular surgery consultation was obtained as patient has bilateral TMJ symptoms where she has some discomfort. At the moment she denies shortness of breath, chest pain, nausea, vomiting, fever or ch ills. She denies any headaches or blurry vision. The patient denies any paralysis or speech defici ts. REVIEW OF SYSTEMS: A 14-point review performed and negative except what is mentioned in the HPI. PAST MEDICAL HISTORY: Entails morbid obesity, BMI of 27.8, coronary artery disease, diabetes, hyper tension, hypercholesterolemia. PAST SURGICAL HISTORY: Previous coronary stents and coronary catheterization, appendectomy. SOCIAL HISTORY: Denies tobacco, alcohol or illicit drug use. FAMILY HISTORY: Positive for hypertension. PHYSICAL EXAMINATION: GENERAL: She is alert and oriented x3, no apparent distress. HEENT: Normocephalic, atraumatic. PERRLA, EOMI. Mucosa moist. NECK: Supple. No carotid bruit. PULMONARY: Clear to auscultation bilaterally. No crackles. CARDIOVASCULAR: S1, S2 present. No murmurs. ABDOMEN: Soft, nontender, nondistended. Bowel sounds positive. Truncal obesity. LOWER EXTREMITIES: Palpable femoral pulse, faint pedal pulse. Motor, sensory intact. Cap refill 2 to 3 seconds. MUSCULOSKELETAL: Cranial nerves II through XII are intact. ASSESSMENT AND PLAN: 1. Visceral aortic atherosclerosis: It seems the patient has visceral vessels that have arthroscle rotic disease; however, the patient does not have any history of postprandial pain or any associated symptoms with her diet. Less likely the patient has any issues with chronic mesenteric ischemia; h owever, will continue to follow the patient as an outpatient in regards to the findings. 2. Bilateral lower extremity atherosclerosis: It seems the patient does have some atherosclerotic disease throughout her vasculature. We will plan to obtain noninvasive vascular studies as the tyrese ent does have some long distance ambulatory restrictions. However, no current findings as the limbs are viable and no current symptoms. We will plan to follow the patient as an outpatient in regards to this matter as well. 3. Temporal arteritis: It seems to be less likely the patient has temporal arteritis, even though she does have elevated sedimentation rate, it seems that the patient has had a significant possibly food poisoning as the patient had severe vomiting after eating what seems to be grapes from a friend 's back yard and this kind of developed into all the findings that her initial presentation at [facility]. At the moment, the patient has not complained of any blurry visions or loss of vision. Further, the patient does not have any significant headaches. She does not have an y temporal tenderness nor does she have any jaw tenderness, although she does have some discomfort t here. It seems to be mainly associated with her clenching her jaw and her mouth during these episod es of vomiting when she came into the hospital originally. We will continue to follow her as if she would require temporal artery biopsy. We can plan this at a later time. I would recommend to cont inue with current medical workup and cardiac workup. 4. Optimize vascular status (BP meds, diet, nutrition, exercise, sugar control, platelets). Discussed findings, plan and management with the patient and family member at the bedside with a cer tified stogy maker and they understand. Thank you for allowing us to partake in the care of your patient. Please call with any questions. Dictated By: FIDEL SANCHEZ/RISA Conf#: [id number] DID#: [id number]
--- NOTE | 2017-06-06 09:55 | CONS ---
Date/Time of Note Date/Time of Note DATE: 06/06/17 TIME: 09:51 Assessment/Plan Assessment/Plan Chief Complaint/Hosp Course NSTEMI: Trop up to 2.3 and consistent with chest pain and diffuse EKG changes. Concern for significant CAD based on EKG findings vs significant demand ischemia in setting of SBP 230 on admission. Pt is agreeable to cardiac cath. Delayed due to renal dysfunction. Acute renal failure: Had two contrast studies so likely MILA especially in the setting of volume depletion from vomiting. Cr improved, now slightly worse, possibly from steroids. Abdominal pain: possible mesenteric ischemia in setting of CT e/o celiac and REVA disease as well as lactic acidosis. Now resolved H/o CAD s/p PCI x 3 Celiac/REVA stenosis DM HTN -recheck Cr later this am, if closer to 1.2 will still plan for cardiac cath. Part of her Cr elevation may be from the steroids -will d/c steroids as vascular surgery did not think the pt had temporal arteritis at this time -keep NPO for now -ASA, plavix (home meds) -coreg -continue heparin drip -imdur Problems: Consultation Date/Type/Reason Admit Date/Time May 31, 2017 at 05:25 Initial Consult Date 05/31/17 Type of Consultation: Cardiology Referring Provider: COREY KHAN 24 HR Interval Summary Free Text/Dictation Cr improved to 1.2 yesterday, now 1.4. Has been receiving steroids lst few days. Gluc has been difficult to control. Family is upset about the steroids. Exam/Review of Systems Vital Signs Vitals Vital Signs Date Time Temp Pulse Resp B/P Pulse Ox O2 Delivery O2 Flow Rate FiO2 06/06/17 08:33 82 06/06/17 07:52 98.1 18 127/66 92 06/04/17 08:20 Nasal Cannula 2.0 Intake and Output 06/05/17 06/05/17 06/06/17 15:00 23:00 07:00 Intake Total 1800 ml 1000 ml Balance 1800 ml 1000 ml Exam Constitutional: alert, oriented Psych: no complaints Head: atraumatic, normocephalic Neck: No jvd Respiratory: clear to auscultation, No crackles/rales Cardiovascular: regular rate and rhythm, No edema, No systolic murmur Gastrointestinal: non-tender, soft Musculoskeletal: nl extremities to inspection Extremities: normal pulses Neurological: nl mental status, nl speech Results Result Diagram: 06/06/17 0300 06/06/17 0300 Results 24 hrs Laboratory Tests Test 06/05/17 12:17 06/05/17 12:23 06/05/17 18:05 06/05/17 18:15 Activated Partial Thromboplast Time 89.6 *H 41.1 H Bedside Glucose 322 H 272 H Blood Urea Nitrogen 26 H Creatinine 1.25 H Test 06/05/17 21:07 06/06/17 02:23 06/06/17 03:00 06/06/17 08:28 Bedside Glucose 443 *H 346 H 161 White Blood Count 12.5 #H Red Blood Count 3.03 L Hemoglobin 8.4 L Hematocrit 26.1 L Mean Corpuscular Volume 86.1 Mean Corpuscular Hemoglobin 27.7 L Mean Corpuscular Hemoglobin Concent 32.2 Red Cell Distribution Width 13.6 Platelet Count 212 Mean Platelet Volume 11.1 H Neutrophils % 85.5 H Lymphocytes % 10.5 L Monocytes % 2.9 Eosinophils % 0.0 Basophils % 0.1 Nucleated Red Blood Cells % 0.0 Neutrophils # 10.7 H Lymphocytes # 1.3 Monocytes # 0.4 Eosinophils # 0.0 Basophils # 0.0 Nucleated Red Blood Cells # 0.0 Activated Partial Thromboplast Time 89.6 *H Sodium Level 138 Potassium Level 4.9 Chloride Level 107 Carbon Dioxide Level 24 Anion Gap 12 Blood Urea Nitrogen 26 H Creatinine 1.42 H Glucose Level 303 H Calcium Level 8.7 Phosphorus Level 3.7 Magnesium Level 2.1 Medications Medications Current Medications Morphine Sulfate (morphine) 2 mg Q4H PRN IV MODERATE PAIN LEVEL 4-6; Start 05/31/17 at 01:30 Acetaminophen (Tylenol Tab) 650 mg Q6H PRN PO PAIN LEVEL 1-3 OR FEVER Last administered on 06/05/17 18:28; Admin Dose 650 MG; Start 05/31/17 at 02:00 Ondansetron HCl (Zofran Inj) 4 mg Q4H PRN IV NAUSEA AND/OR VOMITING Last administered on 05/31/17 02:30; Admin Dose 4 MG; Start 05/31/17 at 02:30 Miscellaneous Information 1 ea NOTE XX ; Start 05/31/17 at 06:15 Glucose (Glutose) 15 gm Q15M PRN PO DECREASED GLUCOSE; Start 05/31/17 at 06:15 Glucose (Glutose) 22.5 gm Q15M PRN PO DECREASED GLUCOSE; Start 05/31/17 at 06: 15 Dextrose (D50w Syringe) 25 ml Q15M PRN IV DECREASED GLUCOSE; Start 05/31/17 at 06:15 Dextrose (D50w Syringe) 50 ml Q15M PRN IV DECREASED GLUCOSE; Start 05/31/17 at 06:15 Glucagon (Glucagen) 1 mg Q15M PRN IM DECREASED GLUCOSE; Start 05/31/17 at 06:15 Glucose (Glutose) 15 gm Q15M PRN BUCCAL DECREASED GLUCOSE; Start 05/31/17 at 06 :15 Amlodipine Besylate (Norvasc) 10 mg DAILY PO Last administered on 06/06/17 08 :33; Admin Dose 10 MG; Start 05/31/17 at 09:00 Aspirin (Halfprin) 81 mg DAILY PO Last administered on 06/06/17 08:33; Admin Dose 81 MG; Start 05/31/17 at 09:00 Carvedilol (Coreg) 12.5 mg BID PO Last administered on 06/06/17 08:32; Admin Dose 12.5 MG; Start 05/31/17 at 09:00 Clopidogrel Bisulfate (plaVIX) 75 mg DAILY PO Last administered on 06/06/17 08:33; Admin Dose 75 MG; Start 05/31/17 at 09:00 Pantoprazole (Protonix Tab) 40 mg DAILY@06 PO Last administered on 06/06/17 05:12; Admin Dose 40 MG; Start 06/04/17 at 06:00 Isosorbide Mononitrate (Imdur) 30 mg DAILY PO Last administered on 06/06/17 08:33; Admin Dose 30 MG; Start 06/04/17 at 11:00 Diagnostic Test (Pha) (Accu-Chek) 1 ea 02 XX Last administered on 06/06/17 02 :30; Admin Dose 1 EA; Start 06/05/17 at 02:00 Prednisone 60 mg 60 mg DAILY PO Last administered on 06/05/17 13:33; Admin Dose 60 MG; Start 06/05/17 at 13:30 Sodium Chloride (NS) 1,000 ml @ 70 mls/hr [id number] IV Last administered on t 03:27; Admin Dose 70 MLS/HR; Start 06/05/17 at 13:30 Insulin Glargine (Lantus) 18 unit DAILY@20 SC ; Start 06/06/17 at 20:00 Insulin Human NPH (Humulin N) 12 unit DAILY@08 SC ; Start 06/06/17 at 08:00 COLEMAN GARCIA Jun 06, 2017 09:54
[2017-06-06 11:29] LABS: CREATININE 1.38 mg/dl (0.44-1.00)
--- NOTE | 2017-06-06 14:30 | PN ---
Date/Time of Note Date/Time of Note DATE: 06/06/17 TIME: 14:24 Assessment/Plan VTE Prophylaxis VTE Prophylaxis Intervention: heparin Lines/Catheters IV Catheter Type (from Nrsg): Peripheral IV Assessment/Plan Chief Complaint/Hosp Course 1. NSTEMI - Cardiology on board and recommendations appreciated. cath today - Patient continued on heparin drip and no further episodes of chest pain - ECHO showed EF 55%, with impaired relaxation with stage I diastolic dysfunction - Continue home medications #jaw pain/shoulder pain/temporal pain -? GCA -no visual deficit -elevated ESR -daily 60mg prednisone ordered, however family refused treatment, explained all potential risks. -vascular surgery consulted for possible temporal artery biopsy. will schedule outpatient. 2. Narrowing Celiac, REVA and SMA - Patient not experiencing any abdominal discomfort, likely outpatient follow up 3. Diabetes Mellitus - Lantus and insulin, adjust as needed - Patients Daughter does not want a community educator consultation due to bad experience in the past - A1c 8.0 - Will hold Metformin - ISS and accuchecks 4. ANITA - Improving, but may worsen with contrast during cath - Keeping hydrated via PO and IV 5. Hypertension - Continue patient's home medications - Monitor and adjust as needed 6. H/o CAD - Continue Plavix/aspirin/beta javi 7. Disposition - cath today -likely outpatient temporal artery biopsy Problems: Subjective 24 Hr Interval Summary Free Text/Dictation no acute issues. hyperglycemic, refused steroids and insulin this AM. spoke with family Exam/Review of Systems Vital Signs Vitals Vital Signs Date Time Temp Pulse Resp B/P Pulse Ox O2 Delivery O2 Flow Rate FiO2 06/06/17 12:15 62 06/06/17 11:41 98.1 18 118/54 96 06/04/17 08:20 Nasal Cannula 2.0 Intake and Output 06/05/17 06/05/17 06/06/17 15:00 23:00 07:00 Intake Total 1800 ml 1000 ml Balance 1800 ml 1000 ml Exam General: Pleasant, lying comfortably in bed in NAD Neck: Supple with full range of motion. head: minimal jaw tenderness, atraumatic. Lungs: Clear to auscultation bilaterally no crackles rales or wheezing Heart: Normal S1-S2, Regular rhythm and rate. No murmur, S3, or S4 Abdomen: Soft, mild tenderness to palpation at the epigastric region, non distended no guarding or rebound Extremities: Normal to inspection, no edema no cyanosis Neurologic: Normal mental status, speech normal, cranial nerves II through XII are intact, motor and sensory are intact, no focal weakness Results Result Diagram: 06/06/17 0300 06/06/17 1053 Results 24 hrs Laboratory Tests Test 06/05/17 18:05 06/05/17 18:15 06/05/17 21:07 06/06/17 02:23 Activated Partial Thromboplast Time 41.1 H Blood Urea Nitrogen 26 H Creatinine 1.25 H Bedside Glucose 272 H 443 *H 346 H Test 06/06/17 03:00 06/06/17 08:28 06/06/17 10:53 06/06/17 12:16 White Blood Count 12.5 #H Red Blood Count 3.03 L Hemoglobin 8.4 L Hematocrit 26.1 L Mean Corpuscular Volume 86.1 Mean Corpuscular Hemoglobin 27.7 L Mean Corpuscular Hemoglobin Concent 32.2 Red Cell Distribution Width 13.6 Platelet Count 212 Mean Platelet Volume 11.1 H Neutrophils % 85.5 H Lymphocytes % 10.5 L Monocytes % 2.9 Eosinophils % 0.0 Basophils % 0.1 Nucleated Red Blood Cells % 0.0 Neutrophils # 10.7 H Lymphocytes # 1.3 Monocytes # 0.4 Eosinophils # 0.0 Basophils # 0.0 Nucleated Red Blood Cells # 0.0 Activated Partial Thromboplast Time 89.6 *H 119.3 *H Sodium Level 138 Potassium Level 4.9 Chloride Level 107 Carbon Dioxide Level 24 Anion Gap 12 Blood Urea Nitrogen 26 H 25 H Creatinine 1.42 H 1.38 H Glucose Level 303 H Calcium Level 8.7 Phosphorus Level 3.7 Magnesium Level 2.1 Bedside Glucose 161 254 H Medications Medications Current Medications Morphine Sulfate (morphine) 2 mg Q4H PRN IV MODERATE PAIN LEVEL 4-6; Start 05/31/17 at 01:30 Acetaminophen (Tylenol Tab) 650 mg Q6H PRN PO PAIN LEVEL 1-3 OR FEVER Last administered on 06/05/17 18:28; Admin Dose 650 MG; Start 05/31/17 at 02:00 Ondansetron HCl (Zofran Inj) 4 mg Q4H PRN IV NAUSEA AND/OR VOMITING Last administered on 05/31/17 02:30; Admin Dose 4 MG; Start 05/31/17 at 02:30 Miscellaneous Information 1 ea NOTE XX ; Start 05/31/17 at 06:15 Glucose (Glutose) 15 gm Q15M PRN PO DECREASED GLUCOSE; Start 05/31/17 at 06:15 Glucose (Glutose) 22.5 gm Q15M PRN PO DECREASED GLUCOSE; Start 05/31/17 at 06: 15 Dextrose (D50w Syringe) 25 ml Q15M PRN IV DECREASED GLUCOSE; Start 05/31/17 at 06:15 Dextrose (D50w Syringe) 50 ml Q15M PRN IV DECREASED GLUCOSE; Start 05/31/17 at 06:15 Glucagon (Glucagen) 1 mg Q15M PRN IM DECREASED GLUCOSE; Start 05/31/17 at 06:15 Glucose (Glutose) 15 gm Q15M PRN BUCCAL DECREASED GLUCOSE; Start 05/31/17 at 06 :15 Amlodipine Besylate (Norvasc) 10 mg DAILY PO Last administered on 06/06/17 08 :33; Admin Dose 10 MG; Start 05/31/17 at 09:00 Aspirin (Halfprin) 81 mg DAILY PO Last administered on 06/06/17 08:33; Admin Dose 81 MG; Start 05/31/17 at 09:00 Carvedilol (Coreg) 12.5 mg BID PO Last administered on 06/06/17 08:32; Admin Dose 12.5 MG; Start 05/31/17 at 09:00 Clopidogrel Bisulfate (plaVIX) 75 mg DAILY PO Last administered on 06/06/17 08:33; Admin Dose 75 MG; Start 05/31/17 at 09:00 Pantoprazole (Protonix Tab) 40 mg DAILY@06 PO Last administered on 06/06/17 05:12; Admin Dose 40 MG; Start 06/04/17 at 06:00 Isosorbide Mononitrate (Imdur) 30 mg DAILY PO Last administered on 06/06/17 08:33; Admin Dose 30 MG; Start 06/04/17 at 11:00 Diagnostic Test (Pha) 1 ea 1 ea 02 XX Last administered on 06/06/17 02:30; Admin Dose 1 EA; Start 06/05/17 at 02:00 Sodium Chloride (NS) 1,000 ml @ 125 mls/hr Q8H IV Last administered on 10/11/ 17at 03:27; Admin Dose 70 MLS/HR; Start 06/05/17 at 13:30 Insulin Glargine (Lantus) 18 unit DAILY@20 SC ; Start 06/06/17 at 20:00 Insulin Human NPH (Humulin N) 12 unit DAILY@08 SC ; Start 06/06/17 at 08:00 BECKI HOLLIS Jun 06, 2017 14:30
[2017-06-06] MEDS ORDERED: IODIXANOL LOCM 100 ML BTL ONE (15:17)
[2017-06-06] MEDS ORDERED: HEPARIN 1000 UNITS/ML 10 ML INJ ONE (15:17)
[2017-06-06] MEDS ORDERED: FENTAnyl 50 MCG/ML VIAL ONE (15:18)
[2017-06-06] MEDS ORDERED: MIDAZOLAM 1 MG/ML 2 ML INJ ONE (15:18)
[2017-06-06] MEDS ORDERED: NITROGLYCERIN (IC) 100 MCG/ML INJ ONE (15:18)
[2017-06-06] MEDS ORDERED: LIDOCAINE 1% (MDV) 20 ML INJ ONE (15:18)
[2017-06-06] MEDS ORDERED: VERAPAMIL 5 MG INJ ONE (15:18)
[2017-06-06] MEDS ORDERED: SOD CHLORIDE 0.9% 1,000 ML IV SCH (16:22)
--- NOTE | 2017-06-06 16:31 | OPR ---
Date/Time of Note Date/Time of Note DATE: 06/06/17 TIME: 16:24 Operative Report Procedure Date: Jun 06, 2017 Preoperative Diagnosis NSTEMI Postoperative Diagnosis NSTEMI Surgeon see signature line Accounts Payable Manager none Anesthesia Type: moderate sedation Estimated Blood Loss: minimal Transfusion none Specimen none Grafts/Implants none Complications none Procedure Description Procedure Date: 06/06/2017 Parking Ramp Attendant/surgeon:Zhao Duron MD. Procedures Performed: 1)Left heart catheterization with selective left and right coronary angiography. Pre-operative Diagnosis:NSTEMI Post-operative Diagnosis:NSTEMI Indications:86 yo F with a h/o CAD s/p prior PCI, DM, HTN, who presented with abdominal pain and vomiting but then developed chest pain and had an NSTEMI ( trop 2). She had ANITA due to MILA from contrast studies which improved. Cath for coronary evaluation was planned. Description of Procedure: After informed consent, the patient was brought to the cardiac catheterization lab. The procedure site was prepped and draped in usual manner. The patient was premedicated with versed 1 mg and fentanyl 50 mcg. 2 mL lidocaine was injected into the left wrist. Next using the posterior wall technique, the 6/5 turkmen sheath was inserted into the left radial artery. Next using the JL3.0 and JR4, selective angiography of the left and right coronary arteries were obtained. The pigtail was then advanced into the ventricle and hemodynamics obtained. Left ventricle angiography was not obtained. Next all equipment was removed and hemostasis was obtained by TR band. Findings: Anatomy/Hemodynamics: Left main: normal LAD: mid stent patent, 20-30% plaquing otherwise Diagonal:luminal irregularities Circumflex:luminal irregularities Obtuse marginal:luminal irregularities RCA: long prox-mid stent patent, otherwise mild luminal irregularities PDA:luminal irregularities PLV:luminal irregularities LV angiography:not done LV-Ao: no gradient LVEDP:10 mmHg Contrast used:30 mL Estimated blood loss<10 mL. Specimen: none Grafts/implants: none Complications: none Assessment: NSTEMI/CAD: nonobstructive CAD with patent prior stents Plan: -continue ASA/plavix for one year for NSTEMI even without obstructive disease. ZHAO DURON Jun 06, 2017 16:31
[2017-06-06] MEDS ORDERED: INSULIN GLARGINE [LANtus] 3 ML PEN SC SCH (20:00)
[2017-06-07] VITALS: PULSE 66
[2017-06-07] MEDS: ACCU-CHEK XX SCH (02:09)
[2017-06-07 04:00] VITALS: BP 120/61; PULSE 68; PULSE 69; RESP 17
[2017-06-07] MEDS: PANTOPRAZOLE (EC) 40 MG TAB PO SCH (06:00)
[2017-06-07 07:22] LABS: BASOPHILS % 0.2 % (0.0-2.0); EOSINOPHILS % 0.4 % (0.0-7.0); HEMATOCRIT 27.2 % (37.0-47.0); HEMOGLOBIN 8.7 g/dl (12.0-16.0); LYMPHOCYTES # 2.8 10^3/ul (0.8-2.9); LYMPHOCYTES % 26.3 % (15.0-51.0); MEAN CORPUSCULAR HEMOGLOBIN 28.2 pg (29.0-33.0); MEAN PLATELET VOLUME 10.6 fl (7.4-10.4); MONOCYTE # 0.7 10^3/ul (0.3-0.9); MONOCYTES % 6.9 % (0.0-11.0); NEUTROPHIL # 6.9 10^3/ul (1.6-7.5); NEUTROPHILS % 65.5 % (39.0-77.0); PLATELET COUNT 233 10^3/UL (140-415); RED BLOOD COUNT 3.09 10^6/ul (4.20-5.40); RED CELL DISTRIBUTION WIDTH 14.2 % (11.5-14.5); WHITE BLOOD COUNT 10.5 10^3/ul (4.8-10.8)
[2017-06-07] MEDS: SOD CHLORIDE 0.9% 1,000 ML IV SCH (07:30)
[2017-06-07 07:45] LABS: MAGNESIUM 1.6 mg/dl (1.7-2.5); PHOSPHORUS 3.3 mg/dl (2.5-4.9)
[2017-06-07 07:47] LABS: CALCIUM 8.7 mg/dl (8.4-10.2); CREATININE 1.22 mg/dl (0.44-1.00); POTASSIUM 4.7 mmol/L (3.5-5.1)
[2017-06-07 07:57] VITALS: BP 122/58; RESP 20
[2017-06-07 08:00] VITALS: PULSE 73
[2017-06-07] MEDS: INSULIN ASPART [NOVOLOG] 3 ML PEN SC SCH ×2 (08:00)
[2017-06-07] MEDS: CLOPIDOGREL 75 MG TAB PO SCH (08:51)
[2017-06-07] MEDS: ISOSORBIDE MONONITRATE(SR)30 MG TAB PO SCH (08:52)
[2017-06-07] MEDS: AMLODIPINE 10 MG TAB PO SCH (08:52)
[2017-06-07] MEDS: ASPIRIN (EC) 81 MG TAB PO SCH (08:52)
[2017-06-07] MEDS ORDERED: MAGNESIUM SULFATE 2 GM/50 ML 50 ML IVPB ONE (10:00)
--- NOTE | 2017-06-07 10:26 | CONS ---
Date/Time of Note Date/Time of Note DATE: 06/07/17 TIME: 10:24 Assessment/Plan Assessment/Plan Chief Complaint/Hosp Course NSTEMI: Trop up to 2.3. Cath with nonobstructive disease and patent stents Acute renal failure: Had two contrast studies so likely MILA especially in the setting of volume depletion from vomiting. Cr almost back to baseline Abdominal pain: possible mesenteric ischemia in setting of CT e/o celiac and REVA disease as well as lactic acidosis. Now resolved H/o CAD s/p PCI x 3 Celiac/REVA stenosis DM HTN -ok for d/c with outpt follow up and labs. No change in home meds -ASA, plavix -coreg Problems: Consultation Date/Type/Reason Admit Date/Time May 31, 2017 at 05:25 Initial Consult Date 05/31/17 Type of Consultation: Cardiology Referring Provider: COREY KHAN 24 HR Interval Summary Free Text/Dictation Cath with nonobstructive disease and patent stents. No symptoms. Eager to go home. Exam/Review of Systems Vital Signs Vitals Vital Signs Date Time Temp Pulse Resp B/P Pulse Ox O2 Delivery O2 Flow Rate FiO2 06/07/17 08:00 73 06/07/17 07:57 100.0 20 122/58 95 06/07/17 04:00 Room Air 06/06/17 17:46 2.0 Intake and Output 06/06/17 06/06/17 06/07/17 15:00 23:00 07:00 Intake Total 700 ml 500 ml Balance 700 ml 500 ml Exam Constitutional: alert, oriented Psych: nl mood/affect, no complaints Head: atraumatic, normocephalic Neck: supple, No jvd Respiratory: clear to auscultation, No crackles/rales Cardiovascular: regular rate and rhythm, No edema, No systolic murmur Gastrointestinal: non-tender, soft Neurological: nl mental status, nl speech Results Result Diagram: 06/07/17 0659 06/07/17 0659 Results 24 hrs Laboratory Tests Test 06/06/17 10:53 06/06/17 12:16 06/06/17 17:11 06/06/17 18:38 Activated Partial Thromboplast Time 119.3 *H Blood Urea Nitrogen 25 H Creatinine 1.38 H Bedside Glucose 254 H 187 162 Test 06/06/17 21:18 06/07/17 02:07 06/07/17 06:59 06/07/17 08:48 Bedside Glucose 225 H 170 104 White Blood Count 10.5 Red Blood Count 3.09 L Hemoglobin 8.7 L Hematocrit 27.2 L Mean Corpuscular Volume 88.0 Mean Corpuscular Hemoglobin 28.2 L Mean Corpuscular Hemoglobin Concent 32.0 Red Cell Distribution Width 14.2 Platelet Count 233 Mean Platelet Volume 10.6 H Neutrophils % 65.5 Lymphocytes % 26.3 Monocytes % 6.9 Eosinophils % 0.4 Basophils % 0.2 Nucleated Red Blood Cells % 0.0 Neutrophils # 6.9 Lymphocytes # 2.8 Monocytes # 0.7 Eosinophils # 0.0 Basophils # 0.0 Nucleated Red Blood Cells # 0.0 Sodium Level 143 Potassium Level 4.7 Chloride Level 110 Carbon Dioxide Level 27 Anion Gap 11 Blood Urea Nitrogen 22 H Creatinine 1.22 H Glucose Level 95 # Calcium Level 8.7 Phosphorus Level 3.3 Magnesium Level 1.6 L Medications Medications Current Medications Morphine Sulfate (morphine) 2 mg Q4H PRN IV MODERATE PAIN LEVEL 4-6; Start 05/31/17 at 01:30 Acetaminophen (Tylenol Tab) 650 mg Q6H PRN PO PAIN LEVEL 1-3 OR FEVER Last administered on 06/05/17 18:28; Admin Dose 650 MG; Start 05/31/17 at 02:00 Ondansetron HCl (Zofran Inj) 4 mg Q4H PRN IV NAUSEA AND/OR VOMITING Last administered on 05/31/17 02:30; Admin Dose 4 MG; Start 05/31/17 at 02:30 Miscellaneous Information 1 ea NOTE XX ; Start 05/31/17 at 06:15 Glucose (Glutose) 15 gm Q15M PRN PO DECREASED GLUCOSE; Start 05/31/17 at 06:15 Glucose (Glutose) 22.5 gm Q15M PRN PO DECREASED GLUCOSE; Start 05/31/17 at 06: 15 Dextrose (D50w Syringe) 25 ml Q15M PRN IV DECREASED GLUCOSE; Start 05/31/17 at 06:15 Dextrose (D50w Syringe) 50 ml Q15M PRN IV DECREASED GLUCOSE; Start 05/31/17 at 06:15 Glucagon (Glucagen) 1 mg Q15M PRN IM DECREASED GLUCOSE; Start 05/31/17 at 06:15 Glucose (Glutose) 15 gm Q15M PRN BUCCAL DECREASED GLUCOSE; Start 05/31/17 at 06 :15 Amlodipine Besylate (Norvasc) 10 mg DAILY PO Last administered on 06/07/17 08 :52; Admin Dose 10 MG; Start 05/31/17 at 09:00 Aspirin (Halfprin) 81 mg DAILY PO Last administered on 06/07/17 08:52; Admin Dose 81 MG; Start 05/31/17 at 09:00 Carvedilol (Coreg) 12.5 mg BID PO Last administered on 06/07/17 08:52; Admin Dose 12.5 MG; Start 05/31/17 at 09:00 Clopidogrel Bisulfate (plaVIX) 75 mg DAILY PO Last administered on 06/07/17 08:51; Admin Dose 75 MG; Start 05/31/17 at 09:00 Pantoprazole (Protonix Tab) 40 mg DAILY@06 PO Last administered on 06/06/17 05:12; Admin Dose 40 MG; Start 06/04/17 at 06:00 Isosorbide Mononitrate (Imdur) 30 mg DAILY PO Last administered on 06/07/17 08:52; Admin Dose 30 MG; Start 06/04/17 at 11:00 Diagnostic Test (Pha) 1 ea 1 ea 02 XX Last administered on 06/07/17 02:09; Admin Dose 1 EA; Start 06/05/17 at 02:00 Sodium Chloride (NS) 1,000 ml @ 125 mls/hr Q8H IV Last administered on 21:50; Admin Dose 125 MLS/HR; Start 06/05/17 at 13:30 Insulin Glargine 18 unit 18 unit DAILY@20 SC Last administered on 06/06/17 21 :49; Admin Dose 9 UNIT; Start 06/06/17 at 20:00 Magnesium Sulfate (Magnesium Sulfate 2 Gm/50 ml) 50 ml @ 25 mls/hr ONCE ONCE IVPB ; Start 06/07/17 at 10:00; Stop 06/07/17 at 11:59 COLEMAN GARCIA Jun 07, 2017 10:26
[2017-06-07 11:44] VITALS: BP 142/65; RESP 18
--- NOTE | 2017-06-07 12:10 | PDOCDIS ---
Discharge Instructions CONDITION Patient Condition: Stable HOME CARE INSTRUCTIONS: Special Diet: CARDIAC/DIABETIC FOLLOW UP/APPOINTMENTS Follow-up Plan 1. Follow up with your primary care provider and brim blocker as soon as possible for repeat labs to check renal function 2.Follow up with Dr. Donny Ford for possible giant cell arteritis. 3. Continue all home meds as directed. BECKI HOLLIS Jun 07, 2017 12:10
--- NOTE | 2017-06-07 14:45 | DS ---
Date/Time of Note Date/Time of Note DATE: 06/07/17 TIME: 14:42 Discharge Summary Admission/Discharge Info Admit Date/Time May 31, 2017 at 05:25 Discharge Date/Time Jun 07, 2017 at 13:30 Hx of Present Illness Chief complaint: Nausea vomiting starting at 2 PM yesterday, shortness of breath , epigastric pain This is a 86-year-old female who presents to the ED nausea and vomiting since 2 PM yesterday and shortness of breath. Patient reports that she started patient reports that she started having nausea vomiting and experienced some shortness of breath. She also had epigastric pain. As it did not get better she came to the ER. He denies any chest pain. Upon initial examination of the abdomen by the ED physician she had diffuse abdominal pain however upon my examination the patient had epigastric pain the rest of her abdomen was benign to palpation. She denied any bloody vomiting or bloody stool. Allergies: NKDA Medications: See [facility] Hospital Course Patient presented with chest pain and had positive troponins in the ED and cardiology was consulted. However due to patient's renal function patient was giving IV hydration before immediate cardiac cath, patient did not have any chest pain after the initial episode. Cardiology took the patient to cath, however found nonobstructive disease. There was no change in medications per cardiology and patient was okayed for discharge. 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 Patient also complained of jaw pain, shoulder pain, temporal pain during this admission and ESR was found to be moderately elevated. Patient was started on daily prednisone however after speaking with vascular surgery consult, patient's family determined that they would like to hold off from the prednisone for now and they will follow-up with primary care provider. The risks of not treating giant cell arteritis was explained to the patient and the patient's family explicitly including the application of vision loss, patient's family states and patient still refused prednisone prescription. Patient was also told to follow-up with her primary care provider within 1 week to check renal function and to continue all home meds. Discharge diagnosis Non-ST elevation NE, nonobstructive per cath Questionable giant cell arteritis Jaw pain Shoulder pain Facial temporal pain Diabetes mellitus Acute kidney injury, resolving Hypertension Coronary artery disease Home Meds Reported Medications Liraglutide (Victoza 3-Delgado) Unknown Strength Pen.injctr, 0 SQ DAILY, SYR 05/30/17 Aspirin* (Aspirin* EC) 81 Mg Tablet.dr, 81 MG PO DAILY, TAB 05/30/17 Metformin Hcl* (Metformin Hcl*) 1,000 Mg Tablet, 1000 MG PO WITH BREAKFAST DINNE , #60 TAB 05/30/17 Clopidogrel Bisulfate* (Clopidogrel Bisulfate*) 75 Mg Tablet, 75 MG PO DAILY, # 30 TAB 05/30/17 Tramadol Hcl* (Ultram*) 50 Mg Tablet, 50 MG PO Q6H Y for PAIN, TAB 05/30/17 Sumatriptan Succinate* (Sumatriptan Succinate*) 50 Mg Tablet, 50 MG PO NEEDED Y for PRN, TAB May repeat after 2 hours if needed; MAX 200 mg/24 hours 05/30/17 Carvedilol* (Carvedilol*) 12.5 Mg Tablet, 12.5 MG PO BID, #60 TAB 05/30/17 Amlodipine Besylate* (Amlodipine Besylate*) 10 Mg Tablet, 10 MG PO DAILY, #30 TAB 05/30/17 Glipizide* (Glipizide*) 10 Mg Tablet, 10 MG PO AC BREAKFAST DINNER, TAB 05/30/17 Discontinued Reported Medications Ibuprofen* (Ibuprofen*) 600 Mg Tablet, 600 MG PO BID Y for PRN, TAB 05/30/17 Follow-up Plan 1. Follow up with your primary care provider and lead sustainability specialist as soon as possible for repeat labs to check renal function 2.Follow up with Dr. Donny Ford for possible giant cell arteritis. 3. Continue all home meds as directed. Primary Care Provider Callie Bain Pending Labs Laboratory Tests Test 06/06/17 17:11 06/06/17 18:38 06/06/17 21:18 06/07/17 02:07 Bedside Glucose 187mg/dL (70-220) 162mg/dL (70-220) 225mg/dL (70-220) 170mg/dL (70-220) Test 06/07/17 06:59 06/07/17 08:48 White Blood Count 10.510^3/ul (4.8-10.8) Red Blood Count 3.0910^6/ul (4.20-5.40) Hemoglobin 8.7g/dl (12.0-16.0) Hematocrit 27.2% (37.0-47.0) Mean Corpuscular Volume 88.0fl (82.0-101.0) Mean Corpuscular Hemoglobin 28.2pg (29.0-33.0) Mean Corpuscular Hemoglobin Concent 32.0g/dl (32.0-37.0) Red Cell Distribution Width 14.2% (11.5-14.5) Platelet Count 15994^3/UL (140-415) Mean Platelet Volume 10.6fl (7.4-10.4) Neutrophils % 65.5% (39.0-77.0) Lymphocytes % 26.3% (15.0-51.0) Monocytes % 6.9% (0.0-11.0) Eosinophils % 0.4% (0.0-7.0) Basophils % 0.2% (0.0-2.0) Nucleated Red Blood Cells % 0.0/100WBC (0.0-0.0) Neutrophils # 6.910^3/ul (1.6-7.5) Lymphocytes # 2.810^3/ul (0.8-2.9) Monocytes # 0.710^3/ul (0.3-0.9) Eosinophils # 0.010^3/ul (0.0-0.5) Basophils # 0.010^3/ul (0.0-0.1) Nucleated Red Blood Cells # 0.010^3/ul (0.0-0.0) Sodium Level 143mmol/L (135-144) Potassium Level 4.7mmol/L (3.5-5.1) Chloride Level 110mmol/L (97-110) Carbon Dioxide Level 27mmol/L (21-31) Anion Gap 11 (8-16) Blood Urea Nitrogen 22mg/dl (7-20) Creatinine 1.22mg/dl (0.44-1.00) Glucose Level 95mg/dl (70-220) Calcium Level 8.7mg/dl (8.4-10.2) Phosphorus Level 3.3mg/dl (2.5-4.9) Magnesium Level 1.6mg/dl (1.7-2.5) Bedside Glucose 104mg/dL (70-220) BECKI HOLLIS Jun 07, 2017 14:45
== END 2017-06-07 13:30 | disposition home or self-care (01) | DRG 280 ==
LOC: E/R 19:31 → MS4 05-31 05:25
PROVIDERS: ADMIT Family Medicine; ATTEND Family Medicine
PROC: B211YZZ Fluoroscopy of Multiple Coronary Arteries using Other Contrast (ICD-10-PCS; 2017-06-06)
PROC: 4A023N7 Measurement of Cardiac Sampling and Pressure, Left Heart, Percutaneous Approach (ICD-10-PCS; principal; 2017-06-06 15:00)
DX: I21.4 Non-ST elevation (NSTEMI) myocardial infarction (principal); N17.0 Acute kidney failure with tubular necrosis; E87.2 Acidosis; K55.1 Chronic vascular disorders of intestine; E83.42 Hypomagnesemia; E11.9 Type 2 diabetes mellitus without complications; I10 Essential (primary) hypertension; I25.10 Atherosclerotic heart disease of native coronary artery without angina pectoris; E78.5 Hyperlipidemia, unspecified; K90.0 Celiac disease; I70.0 Atherosclerosis of aorta; I70.209 Unspecified atherosclerosis of native arteries of extremities, unspecified extremity; M31.6 Other giant cell arteritis; R68.84 Jaw pain; Z95.5 Presence of coronary angioplasty implant and graft; Z79.84 Long term (current) use of oral hypoglycemic drugs; Z79.02 Long term (current) use of antithrombotics/antiplatelets; Z79.82 Long term (current) use of aspirin
CPT/HCPCS: 36415; 36600; 71010; 71275; 74177; 75635; 80048; 80053; 80069; 81001; 82550; 82553; 82565; 82803; 82962; 83036; 83605; 83690; 83735; 84100; 84145; 84439; 84443; 84481; 84484; 84520; 85025; 85610; 85651; 85730; 86140; 93005; 93306; 93458; 93922; 96365; 96366; 96375; 96376; C1887; C9113; J1644; J1815; J2060; J2250; J2270; J2405; J3010; J3475; J7030; J7040; J7512; Q9967